=== PATIENT | female | born 1965 | race Caucasian/White ===

== ENCOUNTER 2016-03-20 14:58 | Outpatient (RCR) | payer OTHER ==
--- OUTSIDE RECORDS SUMMARY | 2015-12-25 13:18 | XMS REPORT | Continuity of Care Document ---
Author Author [facility] Organization [facility] Address Unknown Phone Unavailable Care Team Providers Care Material Requirements Worker Name Role Phone David Cheng PCP [phone] Source Comments Some departments are not documenting in the electronic medical record. If you do not see the information that you expected, contact Release of Information in the Health Information Management department at [phone] for further assistance in locating additional records.[facility] Active Allergies and Adverse Reactions Not on File Current Medications Not on file Active Problems Not on file Social History Tobacco Use Types Packs/Day Years Used Date Never Assessed Plan of Care Health Maintenance Due Date Last Done Comments Physical (Comprehensive) 1971 Exam Pertussis Vaccine 1975 Tetanus Vaccine 1981 Cervical Cancer Screening 1985 Breast Cancer Screening 2004 Colorectal Cancer 2014 Screening Influenza Vaccine 11/16/2015 Results from Last 3 Months Not on file
[~2016-03-20 14:58] MED LIST: AMLO5TAB2 PO; ASPI-999 PO; CLIN300C3 PO; CLOP75TA69 PO; IBUP-2055 PO; LISI-552 PO; MINO50CA2 PO; MULT-221 PO; OMEP20TA33 PO; SIMV20TA3 PO
== END 2016-03-24 | disposition home or self-care (01) ==
LOC: WOUNDCARE 14:58
PROVIDERS: ATTEND Surgery
DX: L97.212 Non-pressure chronic ulcer of right calf with fat layer exposed (principal); I87.331 Chronic venous hypertension (idiopathic) with ulcer and inflammation of right lower extremity; I70.232 Atherosclerosis of native arteries of right leg with ulceration of calf; I73.00 Raynaud's syndrome without gangrene
CPT/HCPCS: 11042; 15271; 29581; 87070; 87075; 87205

== ENCOUNTER 2016-04-08 15:00 | Outpatient (RCR) | payer OTHER ==
--- OUTSIDE RECORDS SUMMARY | 2016-03-25 15:16 | XMS REPORT | Continuity of Care Document ---
Author Author [facility] Organization [facility] Address Unknown Phone Unavailable Care Team Providers Care Certified Dental Assistant Name Role Phone David Cheng PCP [phone] Source Comments Some departments are not documenting in the electronic medical record. If you do not see the information that you expected, contact Release of Information in the Health Information Management department at [phone] for further assistance in locating additional records.[facility] Active Allergies and Adverse Reactions Not [...]
== END 2016-04-09 16:00 | disposition home or self-care (01) ==
LOC: WOUNDCARE 15:00
PROVIDERS: ATTEND Surgery
DX: L97.212 Non-pressure chronic ulcer of right calf with fat layer exposed (principal); I87.331 Chronic venous hypertension (idiopathic) with ulcer and inflammation of right lower extremity; I70.232 Atherosclerosis of native arteries of right leg with ulceration of calf; I73.00 Raynaud's syndrome without gangrene
CPT/HCPCS: 11042; 15271; 87070; 87075; 87077; 87186; 87205

== ENCOUNTER → 2016-04-09 | Outpatient (CLI) | payer OTHER ==
--- OUTSIDE RECORDS SUMMARY | 2016-04-09 12:20 | XMS REPORT | Continuity of Care Document ---
Author Author [facility] Organization [facility] Address Unknown Phone Unavailable Care Team Providers Care Press And Blow Machine Tender Name Role Phone David Cheng PCP [phone] Source Comments Some departments are not documenting in the electronic medical record. If you do not see the information that you expected, contact Release of Information in the Health Information Management department at [phone] for further assistance in locating additional records.[facility] Active Allergies and Adverse Reactions Not on [...]
--- NOTE | 2016-04-09 13:03 | Diagnostic Imaging Report ---
INDICATION: Nonhealing lower leg ulcer. AP and lateral views of the right lower leg are obtained. FINDINGS: There is overlying dressing with small BB over the lateral aspect of the lower leg. There is gas extending into the tissues just cephalad to the lateral malleolus. There is no evidence of fracture, malalignment or bone destruction. No periosteal reaction is seen to indicate active osteomyelitis. IMPRESSION: Lateral lower leg ulceration without evidence of underlying osseous abnormality. Dictated by: Dictated on workstation # [id number]
== END ==
LOC: RAD 12:16
PROVIDERS: ATTEND Surgery
DX: L97.212 Non-pressure chronic ulcer of right calf with fat layer exposed (principal); I87.331 Chronic venous hypertension (idiopathic) with ulcer and inflammation of right lower extremity; I73.00 Raynaud's syndrome without gangrene; L95.9 Vasculitis limited to the skin, unspecified
CPT/HCPCS: 73590

== ENCOUNTER → 2016-09-06 | Outpatient (CLI) | payer OTHER ==
--- NOTE | 2016-09-06 11:42 | Diagnostic Imaging Report ---
EXAMINATION: Right lower extremity duplex venous ultrasound. TECHNIQUE: DVT protocol. Multiple sonographic images with color Doppler and waveform interrogation were performed of the right lower extremity veins with compression and augmentation maneuvers. INDICATION: Right leg pain. FINDINGS: The right lower extremity veins from the groin to below the knee veins were examined with normal color-flow, compressibility and normal waveform demonstrated. The great saphenous vein is patent. IMPRESSION: No evidence of DVT in the right lower extremity. Dictated by: Dictated on workstation # [id number]
== END ==
LOC: RAD 10:59
PROVIDERS: ATTEND Nurse Practitioner Family
DX: R60.0 Localized edema (principal); M79.661 Pain in right lower leg

== ENCOUNTER 2016-09-09 13:27 | Emergency (ER) | payer OTHER ==
[~2016-09-09] VITALS: Ht 170.2 cm; Wt 61.2 kg
--- NOTE | 2016-09-09 13:43 | ED Lower Extremity ---
General Stated Complaint: RT FOOT AND ANKLE PAIN Source: patient Exam Limitations: no limitations History of Present Illness Time seen by provider: 13:41 Initial Comments To ER with pain in the right foot and ankle. This began on 09/06/16. She states that on 09/05/16 she tripped and fell. However she was able to get up and bear weight on her leg without pain. Upon awakening that Friday morning ( the day after), she had pain over the lateral fifth metatarsal, inability to bear weight due to pain, redness and swelling. She was seen by her primary care provider in [place] who ordered an outpatient ultrasound. That was done here and she states it was negative. They were also concerned about possible infection so she was started on Bactrim DS at that time. She denies fevers or chills and states that the swelling has improved since she applied an Jacob wrap, however, the pain persists. Onset: just prior to arrival Severity: moderate Pain/Injury Location: right foot, right ankle Method of Injury: fell Modifying Factors: Worse With Movement Allergies and Home Medications Allergies Coded Allergies: codeine (Unverified Allergy, Intermediate, HIVES AND SWELLING , 03/22/15) Home Medications Amlodipine Besylate 5 Mg Tablet, 5 MG PO DAILY, (Reported) Aspirin 81 Mg Tab.chew, 81 MG PO HS, (Reported) Clopidogrel Bisulfate 75 Mg Tablet, 75 MG PO DAILY, (Reported) Ibuprofen 200 Mg Tablet, 600 MG PO DAILY, (Reported) Lisinopril 20 Mg Tablet, 20 MG PO HS, (Reported) Omeprazole Magnesium 20 Mg Tablet.dr, 20 MG PO DAILY, (Reported) Simvastatin 20 Mg Tablet, 20 MG PO HS, (Reported) Constitutional: see HPI EENTM: see HPI Respiratory: no symptoms reported Cardiovascular: no symptoms reported Musculoskeletal: see HPI Skin: no symptoms reported Psychiatric/Neurological: No Symptoms Reported Past Qhsduhq-Vvvukh-Znrzrg Hx Patient Social History Type Used: Cigars Recent Foreign Travel: No Contact w/Someone Who Travel: No Immunizations Up To Date Date of Pneumonia Vaccine: Oct 24, 2009 Surgeries HX Surgeries: Yes (HAMMER TOE, MINA STRIPPINGS) Respiratory Hx Respiratory Disorders: No Cardiovascular Hx Cardiac Disorders: Yes Cardiac Disorders: High Cholesterol, Hypertension Neurological Hx Neurological Disorders: No Genitourinary Hx Genitourinary Disorders: No Gastrointestinal Hx Gastrointestinal Disorders: No Musculoskeletal Hx Musculoskeletal Disorders: No Endocrine Hx Endocrine Disorders: No Integumentary HX Skin/Integumentary Disorder: Yes (chronic venous stasis ulcer rt lateral ankle) Family Medical History Significant Family History: No Pertinent Family Hx Physical Exam Vital Signs Vital Sign - Last 12Hours 09/09/16 13:42 Temp 97.9 Pulse 128 Resp 16 B/P (MAP) 125/96 Pulse Ox 96 Capillary Refill : General Appearance: WD/WN, no apparent distress HEENT: PERRL/EOMI, normal ENT inspection Respiratory: no respiratory distress, no accessory muscle use Gastrointestinal: non tender, soft Hips: bilateral hip non-tender, bilateral hip normal inspection, bilateral hip normal range of motion Legs: bilateral leg non-tender, bilateral leg normal inspection, bilateral leg normal range of motion Knees: bilateral knee non-tender, bilateral knee normal inspection, bilateral knee normal range of motion Ankles: right ankle pain, right ankle soft tissue tenderness, right ankle swelling, right ankle other (she does have a venous ulcer on the lateral right leg. This is bandaged and she sees wound care at [place] for this. There is no surrounding erythema.) Feet: left foot non-tender, left foot normal inspection, left foot normal range of motion, right foot pain, right foot soft tissue tenderness Neurologic/Psychiatric: alert, normal mood/affect, oriented x 3 Skin: normal color, warm/dry Progress/Results/Core Measures Results/Orders My Orders Orders - HEMA VASQUEZ APRN Foot, Right, 3 View (09/09/16 13:40) Ankle, Right, 3 Views (09/09/16 13:40) Vital Signs/I&O Vital Sign - Last 12Hours 09/09/16 13:42 Temp 97.9 Pulse 128 Resp 16 B/P (MAP) 125/96 Pulse Ox 96 Diagnostic Imaging Diagonstic Imaging: Xray Comments NAME: FABIOLA MAYER [facility] REC#: [id number] PT STATUS: REG ER : 1965 PHYSICIAN: HEMA VASQUEZ APRN ADMIT DATE: 09/09/16/ER Draft Date of Exam:09/09/16 ANKLE, RIGHT, 3 VIEWS Three views of the right the ankle. INDICATION: Fall. FINDINGS: There is soft tissue swelling seen laterally without evidence of underlying fracture. No dislocation. The ankle mortise is normal in configuration. No radiopaque foreign body. There is background osteopenia suggested. IMPRESSION: Lateral soft tissue swelling. Suggestion of osteopenia. Dictated on workstation # [id number] Dict: 09/09/16 1359 Trans: 09/09/16 1401 [facility] [id number] Interpreted by: SINDHU SANTIAGO MD Electronically signed by: NAME: FABOILA MAYER [facility] REC#: [id number] PT STATUS: REG ER : 1965 PHYSICIAN: HEMA VASQUEZ APRN ADMIT DATE: 09/09/16/ER Draft Date of Exam:09/09/16 FOOT, RIGHT, 3 VIEW EXAMINATION: 3 views of the right foot. INDICATION: Left foot pain and swelling. Fall 3 days earlier. FINDINGS: There is a fusion of the proximal interphalangeal joint of the third and fourth digits that appears to be chronic and could potentially be congenital. There is a deformity along the head of the proximal phalanx in the second toe, and suggestion of fusion along the distal interphalangeal joint in this toe. There is also resorption of the head of the middle phalanx in the third toe with arthritic changes seen. Mild degenerative change in the MTP joint is noted. These are potentially related to prior injury or inflammatory arthritis probably of a seronegative type such as psoriasis. There is background osteopenic changes suggested. No acute fracture or dislocation. No radiopaque foreign body. IMPRESSION: Deformities, arthritic changes and joint effusion changes as described. No acute fracture is seen. Correlate with prior history of inflammatory arthritis or from prior trauma. Dictated on workstation # [id number] Dict: 09/09/16 1400 Trans: 09/09/16 1410 [facility] [id number] Interpreted by: SINDHU SANTIAGO MD Electronically signed by: Departure Impression Impression: Primary Impression: Ankle sprain Disposition: 01 HOME, SELF-CARE Condition: Stable Departure-Patient Inst. Decision time for Depature: 14:13 Referrals: [facility] (PCP) Primary Care Physician JESÚS GILL (Family) Primary Care Physician Patient Instructions: Ankle Sprain (DC) Add. Discharge Instructions: 1. Follow-up with your regular doctor this week. If the pain persists, you should discuss obtaining an MRI of the ankle 2. Return to ER for any concerns HEMA VASQUEZ APRN Sep 09, 2016 13:43
--- NOTE | 2016-09-09 14:02 | Diagnostic Imaging Report ---
Three views of the right the ankle. INDICATION: Fall. FINDINGS: There is soft tissue swelling seen laterally without evidence of underlying fracture. No dislocation. The ankle mortise is normal in configuration. No radiopaque foreign body. There is background osteopenia suggested. IMPRESSION: Lateral soft tissue swelling. Suggestion of osteopenia. Dictated by: Dictated on workstation # [id number]
--- NOTE | 2016-09-09 14:11 | Diagnostic Imaging Report ---
EXAMINATION: 3 views of the right foot. INDICATION: Left foot pain and swelling. Fall 3 days earlier. FINDINGS: There is a fusion of the proximal interphalangeal joint of the third and fourth digits that appears to be chronic and could potentially be congenital. There is a deformity along the head of the proximal phalanx in the second toe, and suggestion of fusion along the distal interphalangeal joint in this toe. There is also resorption of the head of the middle phalanx in the third toe with arthritic changes seen. Mild degenerative change in the MTP joint is noted. These are potentially related to prior injury or inflammatory arthritis probably of a seronegative type such as psoriasis. There is background osteopenic changes suggested. No acute fracture or dislocation. No radiopaque foreign body. IMPRESSION: Deformities, arthritic changes and joint effusion changes as described. No acute fracture is seen. Correlate with prior history of inflammatory arthritis or prior trauma. Dictated by: Dictated on workstation # [id number]
[2016-09-09 14:25] VITALS: BP 125/96
--- OUTSIDE RECORDS SUMMARY | 2016-09-09 23:53 | XMS REPORT | Continuity of Care Document ---
Author Author [facility] Organization [facility] Address Unknown Phone Unavailable Care Team Providers Care Healthcare Associate Name Role Phone David Cheng PCP [phone] Source Comments Some departments are not documenting in the electronic medical record. If you do not see the information that you expected, contact Release of Information in the Health Information Management department at [phone] for further assistance in locating additional records.[facility] Active Allergies and Adverse Reactions Not on File Current Medications Not on file Active Problems Not on file Social History Tobacco Use Types Packs/Day Years Used Date Never Assessed Plan of Care Health Maintenance Due Date Last Done Comments Hepatitis C Screening 1965 Physical (Comprehensive) 1971 Exam Pertussis Vaccine 1975 Tetanus Vaccine 1981 Cervical Cancer Screening 1985 Breast Cancer Screening 2004 Colorectal Cancer 2014 Screening Influenza Vaccine 11/15/2016 Results from Last 3 Months Not on file
--- OUTSIDE RECORDS SUMMARY | 2016-09-09 23:54 | XMS REPORT | Continuity of Care Document ---
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 02/13/1199 PHILLIP GEORGE MD, Ot I73.00 RAYNAUD'S SYNDROME WITHOUT GANGRENE 02/13/1199 PHILLIP GEORGE MD Ot I87.331 CHRONIC VENOUS HTN W ULCER AND INFLAMMAT 02/13/1199 PHILLIP GEORGE MD Ot L95.9 VASCULITIS LIMITED TO THE SKIN, UNSPECIF 02/13/1199 PHILLIP GEORGE MD Ot L97.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 ULCER OF RIGHT CALF 02/13/1199 PHILLIP GEORGE MD Ot T65.224A TOXIC EFFECT OF TOBACCO CIGARETTES, UNDE 02/13/1599 PHILLIP GEORGE MD Ot 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 02/13/1599 PHILLIP GEORGE MD Ot I73.00 RAYNAUD'S SYNDROME WITHOUT GANGRENE 02/13/1599 PHILLIP GEORGE MD Ot I87.331 CHRONIC VENOUS HTN W ULCER AND INFLAMMAT 02/13/1599 PHILLIP GEORGE MD, Ot L97.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 ULCER OF RIGHT CALF 02/27/2015 MADLMOISESJES[employer] L DISTRICT ADMINISTRATOR Ot I83.90 02/27/2015 MADLMOISESJESÚS L DISTRICT ADMINISTRATOR Ot M79.604 03/03/2015 MADL JESÚS L DISTRICT ADMINISTRATOR Ot I83.90 03/03/2015 MADMOISES PerezJESÚS L DISTRICT ADMINISTRATOR Ot M79.604 03/09/2015 MADL JESÚS L DISTRICT ADMINISTRATOR Ot I83.90 03/09/2015 JAIROJESÚS DISTRICT ADMINISTRATOR Ot M79.604 03/16/2015 JAIRO JESÚS Chris DISTRICT ADMINISTRATOR Ot I83.90 03/16/2015 JAIRO JESÚS Chris DISTRICT ADMINISTRATOR Ot M79.604 03/16/2015 PHILLIP GEORGE MD Ot I70.232 03/16/2015 PHILLIP GEORGE MD Ot I73.00 03/16/2015 PHILLIP GEORGE MD Ot I87.331 03/16/2015 PHILLIP GEORGE MD Ot L95.9 03/16/2015 PHILLIP GEORGE MD Ot L97.212 03/16/2015 PHILLIP GEORGE MD Ot T65.224A 03/22/2015 NADEEM HAMLIN MD Ot E78.5 HYPERLIPIDEMIA, UNSPECIFIED 03/22/2015 NADEEM HAMLIN MD Ot F17.200 NICOTINE DEPENDENCE, UNSPECIFIED, UNCOMP 03/22/2015 NADEEM HAMLIN MD Ot I10 ESSENTIAL (PRIMARY) HYPERTENSION 03/22/2015 NADEEM HAMLIN MD Ot I73.00 RAYNAUD'S SYNDROME WITHOUT GANGRENE 03/22/2015 NADEEM HAMLIN MD Ot I73.9 PERIPHERAL VASCULAR DISEASE, UNSPECIFIED 03/22/2015 NADEEM HAMLIN MD Ot L97.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 03/22/2015 NADEEM HAMLIN MD Ot Z79.899 OTHER RESIDENTIAL (CURRENT) DRUG THERAPY 05/15/2015 PHILLIP GEORGE MD Ot I70.232 05/15/2015 PHILLIP GEORGE MD Ot I73.00 05/15/2015 PHILLIP GEORGE MD Ot I87.331 05/15/2015 PHILLIP GEORGE MD Ot L95.9 05/15/2015 PHILLIP GEORGE MD Ot L97.212 05/15/2015 PHILLIP GEORGE MD Ot T65.224A 05/15/2015 PHILLIP GEORGE MD Ot I73.00 05/15/2015 PHILLIP GEORGE MD Ot I87.331 05/15/2015 PHILLIP GEORGE MD Ot L95.9 05/15/2015 PHILLIP GEORGE MD Ot L97.212 05/15/2015 JES[employer]S [employer] DISTRICT ADMINISTRATOR Ot I83.90 05/15/2015 JES[employer] DISTRICT ADMINISTRATOR Ot M79.604 05/15/2015 ARIEL HINTON, PHILLIP Pham Ot I70.232 05/15/2015 ARIEL HINTON, PHILLIP Pham Ot I73.00 05/15/2015 ARIEL HINTON, PHILLIP Pham Ot I87.331 05/15/2015 ARIEL HINTON, PHILLIP Pham Ot L95.9 05/15/2015 ARIEL HINTON, PHILLIP Pham Ot L97.212 05/15/2015 ARIEL HINTON, PHILLIP Pham Ot T65.224A 05/15/2015 ARIEL HINTON, PHILLIP Pham Ot I73.9 05/15/2015 ARIEL HINTON, PHILLIP Pham Ot L97.219 05/15/2015 ARIEL HINTON, PHILLIP Pham Ot I73.00 05/15/2015 ARIEL HINTON, PHILLIP Pham Ot I87.331 05/15/2015 ARIEL HINTON, PHILLIP Pham Ot L95.9 05/15/2015 ARIEL HINTON, PHILLIP Pham Ot L97.212 05/15/2015 ARIEL HINTON, PHILLIP Pham Ot I70.232 05/15/2015 ARIEL HINTON, PHILLIP Pham Ot I73.00 05/15/2015 ARIEL HINTON, PHILLIP Pham Ot I87.331 05/15/2015 ARIEL HINTON, PHILLIP Pham Ot L95.9 05/15/2015 ARIEL HINTON, PHILLIP Pham Ot L97.212 05/15/2015 ARIEL HINTON, PHILLIP Pham Ot T65.224A 05/15/2015 ARIEL HINTON, PHILLIP Pham Ot I70.232 05/15/2015 ARIEL HINTON, PHILLIP Pham Ot I73.00 05/15/2015 ARIEL HINTON, PHILLIP Pham Ot I87.331 05/15/2015 ARIEL HINTON, PHILLIP Pham Ot L95.9 05/15/2015 ARIEL HINTON, PHILLIP Pham Ot L97.212 05/15/2015 ARIEL HINTON, PHILLIP Pham Ot T65.224A 05/19/2015 ARIEL HINTON, PHILLIP Pham Ot I73.9 05/19/2015 ARIEL HINTON, PHILLIP Pham Ot L97.219 05/19/2015 ARIEL HINTON, PHILLIP Pham Ot I73.00 05/19/2015 ARIEL HINTON, PHILLIP Pham Ot I87.331 05/19/2015 ARIEL HINTON, PHILLIP Pham Ot L95.9 05/19/2015 PHILLIP GEORGE MD Ot L97.212 06/01/2015 PHILLIP GEORGE MD Ot 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 06/01/2015 PHILLIP GEORGE MD Ot I73.00 RAYNAUD'S SYNDROME WITHOUT GANGRENE 06/01/2015 PHILLIP GEORGE MD Ot I87.331 CHRONIC VENOUS HTN W ULCER AND INFLAMMAT 06/01/2015 PHILLIP GEORGE MD Ot L95.9 VASCULITIS LIMITED TO THE SKIN, UNSPECIF 06/01/2015 PHILLIP GEORGE MD Ot L97.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 ULCER OF RIGHT CALF 06/01/2015 PHILLIP GEORGE MD Ot T65.224A TOXIC EFFECT OF TOBACCO CIGARETTES, UNDE 06/02/2015 PHILLIP GEORGE MD Ot I70.232 06/02/2015 PHILLIP GEORGE MD Ot I73.00 06/02/2015 PHILLIP GEORGE MD Ot I87.331 06/02/2015 PHILLIP GEORGE MD Ot L95.9 06/02/2015 PHILLIP GEORGE MD Ot L97.212 06/02/2015 PHILLIP GEORGE MD Ot T65.224A 06/06/2015 PHILLIP GEORGE MD Ot I70.232 06/06/2015 PHILLIP GEORGE MD Ot I73.00 06/06/2015 PHILLIP GEORGE MD Ot I87.331 06/06/2015 PHILLIP GEORGE MD Ot L95.9 06/06/2015 PHILLIP GEORGE MD Ot L97.212 06/06/2015 PHILLIP GEORGE MD Ot T65.224A 07/25/2015 PHILLIP GEORGE MD Ot 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 07/25/2015 PHILLIP GEORGE MD Ot I73.00 RAYNAUD'S SYNDROME WITHOUT GANGRENE 07/25/2015 PHILLIP GEORGE MD Ot I87.331 CHRONIC VENOUS HTN W ULCER AND INFLAMMAT 07/25/2015 PHILLIP GEORGE MD Ot L95.9 VASCULITIS LIMITED TO THE SKIN, UNSPECIF 07/25/2015 PHILLIP GEORGE MD Ot L97.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 ULCER OF RIGHT CALF 07/25/2015 PHILLIP GEORGE MD Ot 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 07/25/2015 PHILLIP GEORGE MD Ot I73.00 RAYNAUD'S SYNDROME WITHOUT GANGRENE 07/25/2015 PHILLIP GEORGE MD Ot I87.331 CHRONIC VENOUS HTN W ULCER AND INFLAMMAT 07/25/2015 PHILLIP GEORGE MD Ot L95.9 VASCULITIS LIMITED TO THE SKIN, UNSPECIF 07/25/2015 PHILLIP GEORGE MD Ot L97.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 ULCER OF RIGHT CALF 08/14/2015 DIPAK RODGERS Ot I87.8 OTHER SPECIFIED DISORDERS OF VEINS 08/14/2015 DIPAK RODGERS Ot L03.115 CELLULITIS OF RIGHT LOWER LIMB 08/14/2015 DIPAK RODGERS Ot L97.909 NON-PRS CHRONIC ULC UNSP PRT OF UNSP LOW 08/14/2015 JESÚS GILL DISTRICT ADMINISTRATOR Ot I83.90 ASYMPTOMATIC VARICOSE VEINS OF UNSPECIFI 08/14/2015 JESÚ[employer] G[employer] DISTRICT ADMINISTRATOR Ot M79.604 PAIN IN RIGHT LEG 08/14/2015 PHILLIP GEORGE MD Ot I73.9 PERIPHERAL VASCULAR DISEASE, UNSPECIFIED 08/14/2015 PHILLIP GEORGE MD Ot L97.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 08/14/2015 PHILLIP GEORGE MD, Ot I73.00 RAYNAUD'S SYNDROME WITHOUT GANGRENE 08/14/2015 PHILLIP GEORGE MD Ot I87.331 CHRONIC VENOUS HTN W ULCER AND INFLAMMAT 08/14/2015 PHILLIP GEORGE MD Ot L95.9 VASCULITIS LIMITED TO THE SKIN, UNSPECIF 08/14/2015 PHILLIP GEORGE MD Ot L97.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 ULCER OF RIGHT CALF 08/14/2015 PHILLIP GEORGE MD Ot 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 08/14/2015 PHILLIP GEORGE MD Ot I73.00 RAYNAUD'S SYNDROME WITHOUT GANGRENE 08/14/2015 PHILLIP GEORGE MD Ot I87.331 CHRONIC VENOUS HTN W ULCER AND INFLAMMAT 08/14/2015 PHILLIP GEORGE MD Ot L95.9 VASCULITIS LIMITED TO THE SKIN, UNSPECIF 08/14/2015 PHLILIP GEORGE MD Ot L97.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 ULCER OF RIGHT CALF 08/14/2015 PHILLIP GEORGE MD Ot T65.224A TOXIC EFFECT OF TOBACCO CIGARETTES, UNDE 08/14/2015 PHILLIP GEORGE MD Ot 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 08/14/2015 PHILLIP GEORGE MD, Ot I73.00 RAYNAUD'S SYNDROME WITHOUT GANGRENE 08/14/2015 PHILLIP GEORGE MD Ot I87.331 CHRONIC VENOUS HTN W ULCER AND INFLAMMAT 08/14/2015 PHILLIP GEORGE MD, Ot L95.9 VASCULITIS LIMITED TO THE SKIN, UNSPECIF 08/14/2015 PHILLIP GEORGE MD Ot L97.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 ULCER OF RIGHT CALF 08/14/2015 PHILLIP GEORGE MD, Ot 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 08/14/2015 PHILLIP GEORGE MD, Ot I73.00 RAYNAUD'S SYNDROME WITHOUT GANGRENE 08/14/2015 PHILLIP GEORGE MD, Ot I87.331 CHRONIC VENOUS HTN W ULCER AND INFLAMMAT 08/14/2015 PHILLIP GEORGE MD, Ot L95.9 VASCULITIS LIMITED TO THE SKIN, UNSPECIF 08/14/2015 PHILLIP GEORGE MD Ot L97.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 ULCER OF RIGHT CALF 08/16/2015 DIPAK RODGERS Ot I87.8 OTHER SPECIFIED DISORDERS OF VEINS 08/16/2015 DIPAK RODGERS Ot L03.115 CELLULITIS OF RIGHT LOWER LIMB 08/16/2015 DIPAK RODGERS Ot L97.909 NON-PRS CHRONIC ULC UNSP PRT OF UNSP LOW 08/22/2015 DIPAK RODGERS Ot I87.8 OTHER SPECIFIED DISORDERS OF VEINS 08/22/2015 DIPAK RODGERS Ot L03.115 CELLULITIS OF RIGHT LOWER LIMB 08/22/2015 DIPAK RODGERS Ot L97.909 NON-PRS CHRONIC ULC UNSP PRT OF UNSP LOW 09/03/2015 PHILLIP GEORGE MD Ot 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 09/03/2015 PHILLIP GEORGE MD Ot I73.00 RAYNAUD'S SYNDROME WITHOUT GANGRENE 09/03/2015 PHILLIP GEORGE MD Ot I87.331 CHRONIC VENOUS HTN W ULCER AND INFLAMMAT 09/03/2015 PHILLIP GEORGE MD Ot L95.9 VASCULITIS LIMITED TO THE SKIN, UNSPECIF 09/03/2015 PHILLIP GEORGE MD, Ot L97.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 ULCER OF RIGHT CALF 09/03/2015 PHILLIP GEORGE MD, Ot T65.224A TOXIC EFFECT OF TOBACCO CIGARETTES, UNDE 09/04/2015 PHILLIP GEORGE MD Ot 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 09/04/2015 PHILLIP GEORGE MD Ot I73.00 RAYNAUD'S SYNDROME WITHOUT GANGRENE 09/04/2015 PHILLIP GEORGE MD Ot I87.331 CHRONIC VENOUS HTN W ULCER AND INFLAMMAT 09/04/2015 PHILLIP GEORGE MD, Ot L95.9 VASCULITIS LIMITED TO THE SKIN, UNSPECIF 09/04/2015 PHILLIP GEORGE MD, Ot L97.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 ULCER OF RIGHT CALF 09/04/2015 PHILLIP GEORGE MD, Ot T65.224A TOXIC EFFECT OF TOBACCO CIGARETTES, UNDE 09/05/2015 PHILLIP GEORGE MD Ot 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 09/05/2015 PHILLIP GEORGE MD Ot I73.00 RAYNAUD'S SYNDROME WITHOUT GANGRENE 09/05/2015 PHILLIP GEORGE MD Ot I87.331 CHRONIC VENOUS HTN W ULCER AND INFLAMMAT 09/05/2015 PHILLIP GEORGE MD, Ot L95.9 VASCULITIS LIMITED TO THE SKIN, UNSPECIF 09/05/2015 PHILLIP GEORGE MD Ot L97.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 ULCER OF RIGHT CALF 09/05/2015 PHILLIP GEORGE MD, Ot T65.224A TOXIC EFFECT OF TOBACCO CIGARETTES, UNDE 09/15/2015 PHILLIP GEORGE MD Ot 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 09/15/2015 PHILLIP GEORGE MD Ot I73.00 RAYNAUD'S SYNDROME WITHOUT GANGRENE 09/15/2015 PHILLIP GEORGE MD Ot I87.331 CHRONIC VENOUS HTN W ULCER AND INFLAMMAT 09/15/2015 PHILLIP GEORGE MD Ot L95.9 VASCULITIS LIMITED TO THE SKIN, UNSPECIF 09/15/2015 PHILLIP GEORGE MD Ot L97.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 ULCER OF RIGHT CALF 09/15/2015 PHILLIP GEORGE MD Ot T65.224A TOXIC EFFECT OF TOBACCO CIGARETTES, UNDE 09/25/2015 PHILLIP GEORGE MD Ot 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 09/25/2015 PHILLIP GEORGE MD Ot I73.00 RAYNAUD'S SYNDROME WITHOUT GANGRENE 09/25/2015 PHILLIP GEORGE MD Ot I87.331 CHRONIC VENOUS HTN W ULCER AND INFLAMMAT 09/25/2015 PHILLIP GEORGE MD, Ot L95.9 VASCULITIS LIMITED TO THE SKIN, UNSPECIF 09/25/2015 PHILLIP GEORGE MD Ot L97.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 ULCER OF RIGHT CALF 09/25/2015 PHILLIP GEORGE MD, Ot T65.224A TOXIC EFFECT OF TOBACCO CIGARETTES, UNDE 11/03/2015 PHILLIP GEORGE MD Ot 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 11/03/2015 PHILLIP GEORGE MD, Ot I73.00 RAYNAUD'S SYNDROME WITHOUT GANGRENE 11/03/2015 PHILLIP GEORGE MD Ot I87.331 CHRONIC VENOUS HTN W ULCER AND INFLAMMAT 11/03/2015 PHILLIP GEORGE MD, Ot L95.9 VASCULITIS LIMITED TO THE SKIN, UNSPECIF 11/03/2015 PHILLIP GEORGE MD Ot L97.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 ULCER OF RIGHT CALF 11/03/2015 PHILLIP GEORGE MD, Ot T65.224A TOXIC EFFECT OF TOBACCO CIGARETTES, UNDE 11/28/2015 PHILLIP GEORGE MD Ot 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 11/28/2015 PHILLIP GEORGE MD Ot I73.00 RAYNAUD'S SYNDROME WITHOUT GANGRENE 11/28/2015 PHILLIP GEORGE MD Ot I87.331 CHRONIC VENOUS HTN W ULCER AND INFLAMMAT 11/28/2015 PHILLIP GEORGE MD Ot L95.9 VASCULITIS LIMITED TO THE SKIN, UNSPECIF 11/28/2015 PHILLIP GEORGE MD Ot L97.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 ULCER OF RIGHT CALF 11/28/2015 PHILLIP GEORGE MD Ot 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 11/28/2015 PHILLIP GEORGE MD Ot I73.00 RAYNAUD'S SYNDROME WITHOUT GANGRENE 11/28/2015 PHILLIP GEORGE MD Ot I87.331 CHRONIC VENOUS HTN W ULCER AND INFLAMMAT 11/28/2015 PHILLIP GEORGE MD, Ot L95.9 VASCULITIS LIMITED TO THE SKIN, UNSPECIF 11/28/2015 PHILLIP GEORGE MD Ot L97.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 ULCER OF RIGHT CALF 11/29/2015 PHILLIP GEORGE MD Ot 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 11/29/2015 PHILLIP GEROGE MD, Ot I73.00 RAYNAUD'S SYNDROME WITHOUT GANGRENE 11/29/2015 PHILLIP GEORGE MD, Ot I87.331 CHRONIC VENOUS HTN W ULCER AND INFLAMMAT 11/29/2015 PHILLIP GEORGE MD, Ot L95.9 VASCULITIS LIMITED TO THE SKIN, UNSPECIF 11/29/2015 PHILLIP GEORGE MD, Ot L97.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 ULCER OF RIGHT CALF 12/27/2015 PHILLIP GEORGE MD, Ot 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 12/27/2015 PHILLIP GEORGE MD, Ot I73.00 RAYNAUD'S SYNDROME WITHOUT GANGRENE 12/27/2015 PHILLIP GEORGE MD Ot I87.331 CHRONIC VENOUS HTN W ULCER AND INFLAMMAT 12/27/2015 PHILLIP GEORGE MD, Ot L97.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 ULCER OF RIGHT CALF 02/05/2016 J[employer] ADMINISTRATOR Ot I83.90 ASYMPTOMATIC VARICOSE VEINS OF UNSPECIFI 02/05/2016 JES[employer] DISTRICT ADMINISTRATOR Ot M79.604 PAIN IN RIGHT LEG 02/05/2016 PHILLIP GEORGE MD Ot I73.9 PERIPHERAL VASCULAR DISEASE, UNSPECIFIED 02/05/2016 PHILLIP GEORGE MD, Ot L97.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 02/05/2016 PHILLIP GEORGE MD, Ot I73.00 RAYNAUD'S SYNDROME WITHOUT GANGRENE 02/05/2016 PHILLIP GEORGE MD Ot I87.331 CHRONIC VENOUS HTN W ULCER AND INFLAMMAT 02/05/2016 PHILLIP GEORGE MD, Ot L95.9 VASCULITIS LIMITED TO THE SKIN, UNSPECIF 02/05/2016 PHILLIP GEORGE MD, Ot L97.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 ULCER OF RIGHT CALF 02/05/2016 ARIEL MD, PHILLIP G Ot 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 02/05/2016 PHILLIP GEORGE MD Ot I73.00 RAYNAUD'S SYNDROME WITHOUT GANGRENE 02/05/2016 PHILLIP GEORGE MD Ot I87.331 CHRONIC VENOUS HTN W ULCER AND INFLAMMAT 02/05/2016 PHILLIP GEORGE MD Ot L95.9 VASCULITIS LIMITED TO THE SKIN, UNSPECIF 02/05/2016 PHILLIP GEORGE MD, Ot L97.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 ULCER OF RIGHT CALF 02/05/2016 PHILLIP GEORGE MD Ot 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 02/05/2016 PHILLIP GEORGE MD, Ot I73.00 RAYNAUD'S SYNDROME WITHOUT GANGRENE 02/05/2016 PHILLIP GEORGE MD Ot I87.331 CHRONIC VENOUS HTN W ULCER AND INFLAMMAT 02/05/2016 PHILLIP GEORGE MD, Ot L95.9 VASCULITIS LIMITED TO THE SKIN, UNSPECIF 02/05/2016 PHILLIP GEORGE MD Ot L97.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 ULCER OF RIGHT CALF 02/05/2016 PHILLIP GEORGE MD Ot 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 02/05/2016 PHILLIP GEORGE MD Ot I73.00 RAYNAUD'S SYNDROME WITHOUT GANGRENE 02/05/2016 PHILLIP GEORGE MD Ot I87.331 CHRONIC VENOUS HTN W ULCER AND INFLAMMAT 02/05/2016 PHILLIP GEORGE MD Ot L97.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 ULCER OF RIGHT CALF 02/05/2016 PHILLIP GEORGE MD Ot 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 02/05/2016 PHILLIP GEORGE MD Ot I73.00 RAYNAUD'S SYNDROME WITHOUT GANGRENE 02/05/2016 PHILLIP GEORGE MD Ot I87.331 CHRONIC VENOUS HTN W ULCER AND INFLAMMAT 02/05/2016 PHILLIP GEORGE MD Ot L97.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 ULCER OF RIGHT CALF 02/05/2016 PHILLIP GEORGE MD Ot 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 02/05/2016 PHILLIP GEORGE MD Ot I73.00 RAYNAUD'S SYNDROME WITHOUT GANGRENE 02/05/2016 ARIEL MD, PHILLIP G Ot I87.331 CHRONIC VENOUS HTN W ULCER AND INFLAMMAT 02/05/2016 PHILLIP GEORGE MD Ot L97.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 ULCER OF RIGHT CALF 02/05/2016 PHILLIP GEORGE MD Ot 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 02/05/2016 PHILLIP GEORGE MD Ot I73.00 RAYNAUD'S SYNDROME WITHOUT GANGRENE 02/05/2016 PHILLIP GEORGE MD, Ot I87.331 CHRONIC VENOUS HTN W ULCER AND INFLAMMAT 02/05/2016 PHILLIP GEORGE MD, Ot L97.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 ULCER OF RIGHT CALF 02/05/2016 NADEEM HAMLIN MD Ot E78.5 HYPERLIPIDEMIA, UNSPECIFIED 02/05/2016 NADEEM HAMLIN MD Ot I10 ESSENTIAL (PRIMARY) HYPERTENSION 02/05/2016 NADEEM HAMLIN MD Ot 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 02/05/2016 NADEEM HAMLIN MD Ot L97.319 NON-PRESSURE CHRONIC ULCER OF RIGHT ANKL 02/05/2016 NADEEM HAMLIN MD Ot Z79.899 OTHER REGISTERED OCCUPATIONAL THERAPIST (CURRENT) DRUG THERAPY 02/05/2016 NADEEM HAMLIN MD Ot Z87.891 PERSONAL HISTORY OF NICOTINE DEPENDENCE 02/20/2016 PHILLIP GEORGE MD Ot 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 02/20/2016 PHILLIP GEORGE MD Ot I73.00 RAYNAUD'S SYNDROME WITHOUT GANGRENE 02/20/2016 PHILLIP GEORGE MD Ot I87.331 CHRONIC VENOUS HTN W ULCER AND INFLAMMAT 02/20/2016 PHILLIP GEORGE MD Ot L97.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 ULCER OF RIGHT CALF 03/24/2016 PHILLIP GEORGE MD Ot 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 03/24/2016 PHILLIP GEORGE MD Ot I73.00 RAYNAUD'S SYNDROME WITHOUT GANGRENE 03/24/2016 PHILLIP GEORGE MD Ot I87.331 CHRONIC VENOUS HTN W ULCER AND INFLAMMAT 03/24/2016 PHILLIP GEORGE MD Ot L97.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 ULCER OF RIGHT CALF 03/26/2016 PHILLIP GEORGE MD Ot 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 03/26/2016 PHILLIP GEORGE MD Ot I73.00 RAYNAUD'S SYNDROME WITHOUT GANGRENE 03/26/2016 PHILLIP GEORGE MD Ot I87.331 CHRONIC VENOUS HTN W ULCER AND INFLAMMAT 03/26/2016 PHILLIP GEORGE MD Ot L97.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 ULCER OF RIGHT CALF 04/09/2016 [employer] ADMINISTRATOR Ot I83.90 ASYMPTOMATIC VARICOSE VEINS OF UNSPECIFI 04/09/2016 JAIRO JESÚS L DISTRICT ADMINISTRATOR Ot M79.604 PAIN IN RIGHT LEG 04/09/2016 PHILLIP GEORGE MD Ot I73.9 PERIPHERAL VASCULAR DISEASE, UNSPECIFIED 04/09/2016 PHILLIP GEORGE MD, Ot L97.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 04/09/2016 PHILLIP GEORGE MD, Ot I73.00 RAYNAUD'S SYNDROME WITHOUT GANGRENE 04/09/2016 PHILLIP GEORGE MD, Ot I87.331 CHRONIC VENOUS HTN W ULCER AND INFLAMMAT 04/09/2016 PHILLIP GEORGE MD Ot L95.9 VASCULITIS LIMITED TO THE SKIN, UNSPECIF 04/09/2016 PHILLIP GEORGE MD Ot L97.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 ULCER OF RIGHT CALF 04/09/2016 PHILLIP GEORGE MD Ot 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 04/09/2016 PHILLIP GEORGE MD Ot I73.00 RAYNAUD'S SYNDROME WITHOUT GANGRENE 04/09/2016 PHILLIP GEORGE MD Ot I87.331 CHRONIC VENOUS HTN W ULCER AND INFLAMMAT 04/09/2016 PHILLIP GEORGE MD Ot L95.9 VASCULITIS LIMITED TO THE SKIN, UNSPECIF 04/09/2016 PHILLIP GEORGE MD Ot L97.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 ULCER OF RIGHT CALF 04/09/2016 PHILLIP GEORGE MD Ot 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 04/09/2016 PHILLIP GEORGE MD Ot I73.00 RAYNAUD'S SYNDROME WITHOUT GANGRENE 04/09/2016 PHILLIP GEORGE MD Ot I87.331 CHRONIC VENOUS HTN W ULCER AND INFLAMMAT 04/09/2016 PHILLIP GEORGE MD Ot L95.9 VASCULITIS LIMITED TO THE SKIN, UNSPECIF 04/09/2016 PHILLIP GEORGE MD Ot L97.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 ULCER OF RIGHT CALF 04/09/2016 PHILLIP GEORGE MD, Ot 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 04/09/2016 PHILLIP GEORGE MD, Ot I73.00 RAYNAUD'S SYNDROME WITHOUT GANGRENE 04/09/2016 PHILLIP GEORGE MD Ot I87.331 CHRONIC VENOUS HTN W ULCER AND INFLAMMAT 04/09/2016 PHILLIP GEORGE MD, Ot L97.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 ULCER OF RIGHT CALF 04/09/2016 PHILLIP GEORGE MD, Ot 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 04/09/2016 PHILLIP GEORGE MD, Ot I73.00 RAYNAUD'S SYNDROME WITHOUT GANGRENE 04/09/2016 PHILLIP GEORGE MD, Ot I87.331 CHRONIC VENOUS HTN W ULCER AND INFLAMMAT 04/09/2016 PHILLIP GEORGE MD, Ot L97.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 ULCER OF RIGHT CALF 04/09/2016 PHILLIP GEORGE MD Ot 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 04/09/2016 PHILLIP GEORGE MD Ot I73.00 RAYNAUD'S SYNDROME WITHOUT GANGRENE 04/09/2016 PHILLIP GEORGE MD Ot I87.331 CHRONIC VENOUS HTN W ULCER AND INFLAMMAT 04/09/2016 PHILLIP GEORGE MD Ot L97.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 ULCER OF RIGHT CALF 04/19/2016 PHILLIP GEORGE MD Ot I73.00 RAYNAUD'S SYNDROME WITHOUT GANGRENE 04/19/2016 PHILLIP GEORGE MD Ot I87.331 CHRONIC VENOUS HTN W ULCER AND INFLAMMAT 04/19/2016 PHILLIP GEORGE MD Ot L95.9 VASCULITIS LIMITED TO THE SKIN, UNSPECIF 04/19/2016 PHILLIP GEORGE MD, Ot L97.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 ULCER OF RIGHT CALF 09/06/2016 JESÚS IGLL Ot I83.90 ASYMPTOMATIC VARICOSE VEINS OF UNSPECIFI 09/06/2016 JESÚS GILLP Ot M79.604 PAIN IN RIGHT LEG 09/06/2016 PHILLIP GEORGE MD Ot I73.9 PERIPHERAL VASCULAR DISEASE, UNSPECIFIED 09/06/2016 PHILLIP GEORGE MD Ot L97.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 09/06/2016 PHILLIP GEORGE MD, Ot I73.00 RAYNAUD'S SYNDROME WITHOUT GANGRENE 09/06/2016 PHILLIP EGORGE MD Ot I87.331 CHRONIC VENOUS HTN W ULCER AND INFLAMMAT 09/06/2016 PHILLIP GEORGE MD Ot L95.9 VASCULITIS LIMITED TO THE SKIN, UNSPECIF 09/06/2016 PHILLIP GEORGE MD, Ot L97.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 ULCER OF RIGHT CALF 09/06/2016 PHILLIP GEORGE MD, Ot 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 09/06/2016 PHILLIP GEORGE MD, Ot I73.00 RAYNAUD'S SYNDROME WITHOUT GANGRENE 09/06/2016 PHILLIP GEORGE MD, Ot I87.331 CHRONIC VENOUS HTN W ULCER AND INFLAMMAT 09/06/2016 PHILLIP GEORGE MD, Ot L95.9 VASCULITIS LIMITED TO THE SKIN, UNSPECIF 09/06/2016 PHILLIP GEORGE MD, Ot L97.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 ULCER OF RIGHT CALF 09/06/2016 PHILLIP GEORGE MD, Ot 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 09/06/2016 PHILLIP GEORGE MD, Ot I73.00 RAYNAUD'S SYNDROME WITHOUT GANGRENE 09/06/2016 PHILLIP GEORGE MD Ot I87.331 CHRONIC VENOUS HTN W ULCER AND INFLAMMAT 09/06/2016 PHILLIP GEORGE MD Ot L95.9 VASCULITIS LIMITED TO THE SKIN, UNSPECIF 09/06/2016 PHILLIP GEORGE MD, Ot L97.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 ULCER OF RIGHT CALF 09/06/2016 PHILLIP GEORGE MD, Ot 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 09/06/2016 PHILLIP GEORGE MD, Ot I73.00 RAYNAUD'S SYNDROME WITHOUT GANGRENE 09/06/2016 PHILLIP GEORGE MD Ot I87.331 CHRONIC VENOUS HTN W ULCER AND INFLAMMAT 09/06/2016 PHILLIP GEORGE MD Ot L97.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 ULCER OF RIGHT CALF 09/06/2016 PHILLIP GEORGE MD Ot I73.00 RAYNAUD'S SYNDROME WITHOUT GANGRENE 09/06/2016 PHILLIP GEORGE MD, Ot I87.331 CHRONIC VENOUS HTN W ULCER AND INFLAMMAT 09/06/2016 PHILLIP GEORGE MD, Ot L95.9 VASCULITIS LIMITED TO THE SKIN, UNSPECIF 09/06/2016 PHILLIP GEORGE MD, Ot L97.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 ULCER OF RIGHT CALF Procedures Results Test Result Range Bacteria identification in isolate by anaerobe culture - 12/25/15 13:53 Bacteria identification in isolate by anaerobe culture NG NR Gram stain microscopy - 12/25/15 13:53 GRAM STAIN RESULT NO WBC'S OR BACTERIA OBSERVED NRG Bacteria identification in wound by culture - 12/25/15 13:53 Bacteria identification in wound by culture NG NRG Complete blood count (CBC) with automated white blood cell (WBC) differential - 12/25/15 14:40 Blood leukocytes automated count (number/volume) 7.7 10*3/ uL 4.3-11.0 Blood erythrocytes automated count (number/volume) 4.38 10*6 /uL 4.35-5.85 Venous blood hemoglobin measurement (mass/volume) 13.5 g/dL 11.5-16.0 Blood hematocrit (volume fraction) 41 % 35-52 Automated erythrocyte mean corpuscular volume 93 [foz_us] 80-99 Automated erythrocyte mean corpuscular hemoglobin (mass per erythrocyte) 31 pg 25-34 Automated erythrocyte mean corpuscular hemoglobin concentration measurement ( mass/volume) 33 g/dL 32-36 Automated erythrocyte distribution width ratio 14.9 % 10.0-14.5 Automated blood platelet count (count/volume) 178 10*3/uL 130-400 Automated blood platelet mean volume measurement 9.6 [foz_us ] 7.4-10.4 Automated blood neutrophils/100 leukocytes 68 % 42-75 Automated blood lymphocytes/100 leukocytes 19 % 12-44 Blood monocytes/100 leukocytes 11 % 0-12 Automated blood eosinophils/100 leukocytes 1 % 0-10 Automated blood basophils/100 leukocytes 1 % 0-10 Blood neutrophils automated count (number/volume) 5.2 10*3 1.8-7.8 Blood lymphocytes automated count (number/volume) 1.5 10*3 1.0-4.0 Blood monocytes automated count (number/volume) 0.9 10*3 0.0-1.0 Automated eosinophil count 0.1 10*3/uL 0.0-0.3 Automated blood basophil count (count/volume) 0.0 10*3/uL 0.0-0.1 Comprehensive metabolic panel - 12/25/15 14:40 Serum or plasma sodium measurement (moles/volume) 138 mmol/ L 135-145 Serum or plasma potassium measurement (moles/volume) 3.8 mmol/L 3.6-5.0 Serum or plasma chloride measurement (moles/volume) 104 mmol /L 98-107 Carbon dioxide 21 mmol/L 21-32 Serum or plasma anion gap determination (moles/volume) 13 mmol/L 5-14 Serum or plasma urea nitrogen measurement (mass/volume) 9 mg /dL 7-18 Serum or plasma creatinine measurement (mass/volume) 0.73 mg /dL 0.60-1.30 Serum or plasma urea nitrogen/creatinine mass ratio 12 NRG Serum or plasma creatinine measurement with calculation of estimated glomerular filtration rate > NRG Serum or plasma glucose measurement (mass/volume) 92 mg/dL 70-105 Serum or plasma calcium measurement (mass/volume) 9.7 mg/dL 8.5-10.1 Serum or plasma total bilirubin measurement (mass/volume) 0.2 mg/dL 0.1-1.0 Serum or plasma alkaline phosphatase measurement (enzymatic activity/volume) 93 U/L 40-136 Serum or plasma aspartate aminotransferase measurement (enzymatic activity/ volume) 28 U/L 5-34 Serum or plasma alanine aminotransferase measurement (enzymatic activity/volume ) 25 U/L 0-55 Serum or plasma protein measurement (mass/volume) 7.4 g/dL 6.4-8.2 Serum or plasma albumin measurement (mass/volume) 4.4 g/dL 3.2-4.5 Complete urinalysis with reflex to culture - 02/05/16 07:27 Urine color determination YELLOW NRG Urine clarity determination CLEAR NRG Urine pH measurement by test strip 6.5 5 -9 Specific gravity of urine by test strip 1.015 1.016-1.022 Urine protein assay by test strip, semi-quantitative NEGATIVE NEGATIVE Urine glucose detection by automated test strip NEGATIVE NEGATIVE Erythrocytes detection in urine sediment by light microscopy 2+ NEGATIVE Urine ketones detection by automated test strip NEGATIVE NEGATIVE Urine nitrite detection by test strip NEGATIVE NEGATIVE Urine total bilirubin detection by test strip NEGATIVE NEGATIVE Urine urobilinogen measurement by automated test strip (mass/volume) NORMAL NORMAL Urine leukocyte esterase detection by dipstick NEGATIVE NEGATIVE Automated urine sediment erythrocyte count by microscopy (number/high power field) [HPF] NRG Automated urine sediment leukocyte count by microscopy (number/high power field ) NONE NRG Bacteria detection in urine sediment by light microscopy TRACE NRG Squamous epithelial cells detection in urine sediment by light microscopy 5-10 NRG Crystals detection in urine sediment by light microscopy NONE NRG Casts detection in urine sediment by light microscopy NONE NRG Mucus detection in urine sediment by light microscopy NEGATIVE NRG Complete urinalysis with reflex to culture YES NRG Yeast detection in urine sediment by light microscopy FEW NRG Bacterial urine culture - 02/05/16 07:27 Bacterial urine culture [id number] NRG COLONY COUNT <10,000 NRG FREE TEXT ENTRY 2 MIXED GRAM POSITIVE PERLA <10,000/ML NRG Automated blood complete blood count (hemogram) panel - 02/05/16 07:36 Blood leukocytes automated count (number/volume) 5.1 10*3/ uL 4.3-11.0 Blood erythrocytes automated count (number/volume) 4.47 10*6 /uL 4.35-5.85 Venous blood hemoglobin measurement (mass/volume) 13.3 g/dL 11.5-16.0 Blood hematocrit (volume fraction) 41 % 35-52 Automated erythrocyte mean corpuscular volume 92 [foz_us] 80-99 Automated erythrocyte mean corpuscular hemoglobin (mass per erythrocyte) 30 pg 25-34 Automated erythrocyte mean corpuscular hemoglobin concentration measurement ( mass/volume) 33 g/dL 32-36 Automated erythrocyte distribution width ratio 15.0 % 10.0-14.5 Automated blood platelet count (count/volume) 193 10*3/uL 130-400 Automated blood platelet mean volume measurement 9.7 [foz_us ] 7.4-10.4 PT panel in platelet poor plasma by coagulation assay - 02/05/16 07:36 Prothrombin time (PT) in platelet poor plasma by coagulation assay 11.6 s 12.2-14.7 INR in platelet poor plasma or blood by coagulation assay 0.9 0.8-1.4 Activated partial thromboplastin time (aPTT) in platelet poor plasma bycoagulation assay - 02/05/16 07:36 Activated partial thromboplastin time (aPTT) in platelet poor plasma bycoagulation assay 27 s 24-35 Comprehensive metabolic panel - 02/05/16 07:36 Serum or plasma sodium measurement (moles/volume) 141 mmol/ L 135-145 Serum or plasma potassium measurement (moles/volume) 4.0 mmol/L 3.6-5.0 Serum or plasma chloride measurement (moles/volume) 106 mmol /L 98-107 Carbon dioxide 25 mmol/L 21-32 Serum or plasma anion gap determination (moles/volume) 10 mmol/L 5-14 Serum or plasma urea nitrogen measurement (mass/volume) 4 mg /dL 7-18 Serum or plasma creatinine measurement (mass/volume) 0.66 mg /dL 0.60-1.30 Serum or plasma urea nitrogen/creatinine mass ratio 6 NRG Serum or plasma creatinine measurement with calculation of estimated glomerular filtration rate > NRG Serum or plasma glucose measurement (mass/volume) 85 mg/dL 70-105 Serum or plasma calcium measurement (mass/volume) 9.3 mg/dL 8.5-10.1 Serum or plasma total bilirubin measurement (mass/volume) 0.3 mg/dL 0.1-1.0 Serum or plasma alkaline phosphatase measurement (enzymatic activity/volume) 90 U/L 40-136 Serum or plasma aspartate aminotransferase measurement (enzymatic activity/ volume) 33 U/L 5-34 Serum or plasma alanine aminotransferase measurement (enzymatic activity/volume ) 25 U/L 0-55 Serum or plasma protein measurement (mass/volume) 7.5 g/dL 6.4-8.2 Serum or plasma albumin measurement (mass/volume) 4.4 g/dL 3.2-4.5 Lipid 1996 panel - 02/05/16 07:36 Serum or plasma triglyceride measurement (mass/volume) 58 mg /dL <150 Serum or plasma cholesterol measurement (mass/volume) 231 mg /dL < 200 Serum or plasma cholesterol in HDL measurement (mass/volume) 107 mg/dL 40-60 Cholesterol in LDL [mass/volume] in serum or plasma by direct assay 107 mg/dL 1-129 Serum or plasma cholesterol in VLDL measurement (mass/volume) 12 mg/dL 5-40 Methicillin resistant Staphylococcus aureus (MRSA) screening culture - 07:36 Methicillin resistant Staphylococcus aureus (MRSA) screening culture NEG NRG Bacteria identification in isolate by anaerobe culture - 02/19/16 15:45 Bacteria identification in isolate by anaerobe culture NG NR Gram stain microscopy - 02/19/16 15:45 GRAM STAIN RESULT NO WBC'S OR BACTERIA OBSERVED NRG Bacteria identification in wound by culture - 02/19/16 15:45 Bacteria identification in wound by culture NG NRG Bacteria identification in isolate by anaerobe culture - 04/08/16 15:50 Bacteria identification in isolate by anaerobe culture NG NRG Gram stain microscopy - 04/08/16 15:50 GRAM STAIN RESULT FEW WBC'S, NO BACTERIA OBSERVED NRG Bacteria identification in wound by culture - 04/08/16 15:50 Bacteria identification in wound by culture [id number] NRG FREE TEXT EXTERNAL PLEASE NOTIFY MICRO AT EXT [address] NRG QUANTITY OF GROWTH Scant Growth NRG FREE TEXT ENTRY 2 REQUESTS A SENSITIVITY ON THIS ISOLATE NRG Bacterial susceptibility panel - 04/08/16 15:50 Gentamicin susceptibility test by minimum inhibitory concentration 8 NRG Tobramycin susceptibility test by minimum inhibitory concentration <= NRG Piperacillin/tazobactam susceptibility test by minimum inhibitory concentration 8 NRG Ciprofloxacin susceptibility test by minimum inhibitory concentration <= NRG Meropenem susceptibility test by minimum inhibitory concentration <= NRG Cefepime susceptibility test by minimum inhibitory concentration 8 NRG Encounters ACCT No. Visit Date/Time Discharge Status Pt. Type Provider Facility Loc./Unit Complaint [id number] 04/08/2016 15:00:00 2016 16:00:00 DIS Outpatient PHILLIP GEORGE MD [facility] WOUNDCARE [id number] 03/20/2016 14:58:00 2016 00:01:00 DIS Outpatient PHILLIP GEORGE MD [facility] WOUNDCARE [id number] 02/05/2016 07:04:00 2015 14:42:00 DIS Outpatient NADEEM HAMLIN MD [facility] CATH PVD,HTN,HLP [id number] 09/25/2015 08:31:00 2015 12:00:00 DIS Outpatient PHILLIP GEORGE MD [facility] WOUNDCARE [id number] 08/14/2015 11:07:00 2015 12:17:00 DIS Emergency DIPAK RODGERS [facility] ER RIGHT LEG RED/SWOLLEN [id number] 05/29/2015 08:16:00 2015 00:01:00 DIS Outpatient PHILLIP GEORGE MD [facility] WOUNDCARE [id number] 03/22/2015 08:36:00 2015 16:00:00 DIS Outpatient YAKELIN HINTON, NADEEM Carmona [facility] PVD,HTN,TOBACCOISM [id number] 01/16/2015 10:26:00 2014 23:59:59 CLS Outpatient J[facility] [employer] [facility] RAD PAIN OF RT LOWER LEG [id number] 09/06/2016 10:59:00 ACT Outpatient JEREMY ANDRADE NEUROLOGY PROFESSOR [facility] RAD EDEMA OF RT L/E R60.0 [id number] 04/09/2016 12:16:00 ACT Outpatient PHILLIP GEORGE MD [facility] RAD L97.212,I87.331,I73.00 [id number] 12/25/2015 14:34:00 ACT Outpatient PHILLIP GEORGE MD [facility] LAB CBC, CMP [id number] 08/28/2015 08:16:00 ACT Outpatient PHILLIP GEORGE MD [facility] WOUNDCARE [id number] 07/31/2015 08:56:00 ACT Outpatient PHILLIP GEORGE MD [facility] RAD RT CALF ULCER [id number] 07/24/2015 09:06:00 ACT Outpatient PHILLIP GEORGE MD [facility] LAB RT CALF ULCER [id number] 04/26/2015 13:35:00 ACT Outpatient PHILLIP GEORGE MD [facility] RAD CHRONIC ULCER OF RIGHT CALF,RAYNAUD'S SYNDROME [id number] 03/16/2015 08:57:00 ACT Outpatient PHILLIP GEORGE MD [facility] RAD RIGHT CALF ULCER,PAD
== END 2016-09-09 14:25 | disposition home or self-care (01) ==
LOC: EDUNIT# 13:27 → ER 13:30
DX: S93.401A Sprain of unspecified ligament of right ankle, initial encounter (principal); I10 Essential (primary) hypertension; E78.00 Pure hypercholesterolemia, unspecified; F17.290 Nicotine dependence, other tobacco product, uncomplicated; Z88.5 Allergy status to narcotic agent; Z79.82 Long term (current) use of aspirin; W01.0XXA Fall on same level from slipping, tripping and stumbling without subsequent striking against object, initial encounter
CPT/HCPCS: 73610; 73630; 99281

== ENCOUNTER → 2016-10-03 | Outpatient (CLI) | payer MEDICAID, OTHER ==
--- NOTE | 2016-10-03 11:15 | Diagnostic Imaging Report ---
EXAMINATION: DEXA study. INDICATION: Osteopenia FINDINGS: Bone mineral density of the lumbar spine, L2-L4 is 0.967 g/cm2 with a T-score of -1.9. This is in the OSTEOPENIA range. Bone mineral density of the left femur is 0.914 g/cm2 with a T-score of -0.7. This is in the NORMAL range. Bone mineral density of the right femur is 0.901 g/cm2 with a T-score of -0.8. This is in the NORMAL range. Total mean density of the hips is 0.908 g/cm2 with a T-score of -0.8. IMPRESSION: This scan is considered OSTEOPENIC according to the World Health Organization guidelines. Dictated by: Dictated on workstation # [id number]
== END ==
LOC: RAD 09:39
PROVIDERS: ATTEND Nurse Practitioner Family
DX: M85.89 Other specified disorders of bone density and structure, multiple sites (principal)
CPT/HCPCS: 77080

== ENCOUNTER → 2017-05-23 | Outpatient (CLI) | payer MEDICAID | LOC: CARD 13:03 | PROVIDERS: ATTEND Family Medicine | DX: R00.2 Palpitations (principal); R42 Dizziness and giddiness | CPT/HCPCS: 93225; 93226 ==

== ENCOUNTER → 2019-04-27 | Outpatient (CLI) | payer MEDICARE, MEDICAID ==
[~2019-04-27] MED LIST changes: -AMLO5TAB2 PO; +AMLO5TAB9 PO; -IBUP-2055 PO; +IBUP-2473 PO; -MINO50CA2 PO; +MINO50CA4 PO; +SIMV20TA26 PO; -SIMV20TA3 PO
--- NOTE | 2019-04-27 17:00 | Diagnostic Imaging Report ---
EXAMINATION: Chest 2 view HISTORY: Cough. COMPARISON: 02/05/2016. FINDINGS: There are new airspace opacities in the right mid zone and left upper zone consistent with pneumonia. No pleural effusion or pneumothorax. Heart size is normal. There is a hiatal hernia. IMPRESSION: 1. Right mid and left upper zone pneumonia. Dictated by: Dictated on workstation # [id number]
== END ==
LOC: RAD 16:20
PROVIDERS: ATTEND Family Medicine
DX: J18.9 Pneumonia, unspecified organism (principal)
CPT/HCPCS: 71046

== ENCOUNTER → 2019-05-18 | Outpatient (CLI) | payer MEDICARE, MEDICAID ==
--- NOTE | 2019-05-18 15:11 | Diagnostic Imaging Report ---
EXAMINATION: CHEST (PA AND LATERAL). CLINICAL INDICATION: 54-year-old female, cough. History of pneumonia. COMPARISON: April 27, 2019. FINDINGS: There is a nodular and somewhat mass-like appearing area of opacification overlying the left upper lobe measuring 3.6 x 3.8 cm in size which does not appear to be substantially changed radiographically since April 27, 2019. The heart size and mediastinal contours are unchanged. There is a moderate to large hiatal hernia. There is no identified pneumothorax. There is no pleural effusion. There is no additional identified focal airspace consolidation. There are degenerative changes of the spine. IMPRESSION: 1. Mass-like area of opacification overlying the left upper lobe which is grossly unchanged radiographically since April 27, 2019. This does raise concern for a more chronic airspace consolidative process including potential malignancy. CT chest with intravenous contrast is recommended for further assessment. 2. Moderate to large hiatal hernia. Dictated by: Dictated on workstation # [id number]
== END ==
LOC: RAD 13:46
PROVIDERS: ATTEND Family Medicine
DX: J18.9 Pneumonia, unspecified organism (principal); K44.9 Diaphragmatic hernia without obstruction or gangrene
CPT/HCPCS: 71046

== ENCOUNTER → 2019-05-21 | Outpatient (CLI) | payer MEDICARE, MEDICAID ==
[~2019-05-21] MED LIST changes: +CATHETER FLUSH 10 ML SYR IV PRN; +HOLD METFORMIN - RECEIVED CONTRAST 20 ML VIAL IV SCH; +IOHEXOL 350 MG/ML 100 ML (OMNIPAQUE 350) VIAL IV ONE; +NS 100 ML (IVPB) BAG IV ONE
[2019-05-21 12:22] LABS: BUN/CREATININE RATIO 8; CREATININE SERUM 0.66 MG/DL (0.60-1.30); GFR ESTIMATED > 60
--- NOTE | 2019-05-21 13:31 | Diagnostic Imaging Report ---
PROCEDURE: CT chest with contrast only. TECHNIQUE: Multiple contiguous axial images were obtained through the chest after administration of intravenous contrast. Auto Exposure Controls were utilized during the CT exam to meet ALARA standards for radiation dose reduction. INDICATION: Abnormal chest x-ray. COMPARISON: Correlation is made with recent chest radiograph from 05/18/2019. FINDINGS: No axillary lymphadenopathy is detected. No definite mediastinal or hilar lymphadenopathy is detected. No pericardial or pleural fluid is identified. There is a large hiatal hernia. Parenchymal evaluation does show a lobulated masslike density in the superior segment of left lower lobe corresponding with the chest radiographic density. This measures 3.4 cm transverse x 2.3 cm AP. The remainder of the lung gaines appear to be clear. Previously noted infiltrate in the right upper lung has resolved. Imaging through the upper abdomen is unremarkable. IMPRESSION: 1. Masslike density in the superior segment of left lower lobe accounting for the chest radiographic density. This is concerning for a lung neoplasm. PET/CT would be useful for further evaluation. No other pulmonary parenchymal abnormalities are seen. There is no evidence of thoracic lymphadenopathy. 2. Large hiatal hernia. Dictated by: Dictated on workstation # [id number]
== END ==
LOC: RAD 11:50
PROVIDERS: ATTEND Family Medicine
DX: K44.9 Diaphragmatic hernia without obstruction or gangrene (principal); R91.8 Other nonspecific abnormal finding of lung field
CPT/HCPCS: 36415; 71260; 82565; 84520

== ENCOUNTER 2019-09-21 13:36 | Outpatient (RCR) | payer MEDICARE, MEDICAID ==
[~2019-09-21 13:36] MED LIST changes: -CATHETER FLUSH 10 ML SYR IV PRN; -HOLD METFORMIN - RECEIVED CONTRAST 20 ML VIAL IV SCH; -IOHEXOL 350 MG/ML 100 ML (OMNIPAQUE 350) VIAL IV ONE; -NS 100 ML (IVPB) BAG IV ONE
== END 2019-12-03 08:51 | disposition home or self-care (01) ==
LOC: ONC 13:36
PROVIDERS: ATTEND Internal Medicine Hematology & Oncology
DX: D64.9 Anemia, unspecified (principal); I10 Essential (primary) hypertension; E78.5 Hyperlipidemia, unspecified; E78.00 Pure hypercholesterolemia, unspecified
CPT/HCPCS: 99214

== ENCOUNTER → 2019-10-11 | Outpatient (CLI) | payer MEDICARE, MEDICAID ==
[2019-10-11 15:53] LABS: HEMATOCRIT 38 % (35-52); HEMOGLOBIN 11.9 G/DL (11.5-16.0); MEAN CORPUSCULAR HEMOGLOBIN 28 PG (25-34); MEAN CORPUSCULAR HGB CONC 32 G/DL (32-36); MEAN CORPUSCULAR VOLUME 89 FL (80-99); RED CELL DISTRIBUTION WIDTH 24.3 % (10.0-14.5); WHITE BLOOD COUNT 8.6 10^3/uL (4.3-11.0)
[2019-10-11 15:54] LABS: BASOPHILS % (AUTO) 1 % (0-10); EOSINOPHILS % (AUTO) 2 % (0-10); LYMPHOCYTES % (AUTO) 13 % (12-44); MEAN PLATELET VOLUME 8.6 FL (7.4-10.4); MONOCYTES % (AUTO) 11 % (0-12); NEUTROPHILS % (AUTO) 74 % (42-75); PLATELET COUNT 236 10^3/uL (130-400)
[2019-10-11 15:55] LABS: EOSINOPHILS # (AUTO) 0.1 10^3/uL (0.0-0.3); LYMPHOCYTES # (AUTO) 1.2 X 10^3 (1.0-4.0); NEUTROPHILS # (AUTO) 6.3 X 10^3 (1.8-7.8)
[2019-10-11 17:05] LABS: ALKALINE PHOSPHATASE 166 U/L (40-136); BILIRUBIN,TOTAL 0.2 MG/DL (0.1-1.0); BUN/CREATININE RATIO 15; CALCIUM 9.5 MG/DL (8.5-10.1); CARBON DIOXIDE 24 MMOL/L (21-32); CHLORIDE 99 MMOL/L (98-107); CREATININE SERUM 0.61 MG/DL (0.60-1.30); GFR ESTIMATED > 60; GLUCOSE 100 MG/DL (70-105); POTASSIUM 4.3 MMOL/L (3.6-5.0); SODIUM 135 MMOL/L (135-145)
[2019-10-11 17:06] LABS: ALANINE AMINOTRANSFERASE 32 U/L (0-55); ALBUMIN 4.5 GM/DL (3.2-4.5)
[2019-10-11 17:33] LABS: ANISOCYTOSIS SLIGHT; BAND NEUTROPHILS 0 %; BASOPHILS % (MANUAL) 3 %; EOSINOPHILS % (MANUAL) 2 %; HYPOCHROMASIA SLIGHT; LYMPHOCYTES % (MANUAL) 21 %; MONOCYTES % (MANUAL) 9 %; NEUTROPHILS % (MANUAL) 65 %
== END ==
LOC: LAB FS 15:27
PROVIDERS: ATTEND Nurse Practitioner Family
DX: D50.0 Iron deficiency anemia secondary to blood loss (chronic) (principal); R91.8 Other nonspecific abnormal finding of lung field
CPT/HCPCS: 36415; 80053; 85007; 85027

== ENCOUNTER → 2019-10-12 | Outpatient (CLI) | payer MEDICARE, MEDICAID ==
[~2019-10-12] MED LIST changes: +CATHETER FLUSH 10 ML SYR IV PRN; +HOLD METFORMIN - RECEIVED CONTRAST 20 ML VIAL IV SCH; +IOHEXOL 350 MG/ML 100 ML (OMNIPAQUE 350) VIAL IV ONE; +NS 100 ML (IVPB) BAG IV ONE
--- NOTE | 2019-10-12 11:10 | Diagnostic Imaging Report ---
EXAMINATION: CT Chest with intravenous contrast. TECHNIQUE: Multiple contiguous axial images were obtained through the chest after the uneventful administration of intravenous contrast. All CT scans use one or more of the following dose optimizing techniques: automated exposure control, MA and/or KvP adjustment based on a patient size and exam type, or iterative reconstruction. HISTORY: Lung mass. COMPARISON: 05/21/2019. FINDINGS: There is no edema or pneumonia. No pleural effusion. No pneumothorax. The left lower lobe mass is unchanged in size measuring 3.4 x 2.3 cm, previously 3.5 x 2.5 cm. This mass has developed internal areas of cavitation. There are few new tree-in-bud nodules in the lingula likely related to aspiration. Heart size is normal. There are mild coronary artery calcifications. No pericardial effusion. Aorta is normal in caliber. There is no axillary or supraclavicular lymphadenopathy. There is no mediastinal lymphadenopathy. There is a large hiatal hernia. Limited views of the upper abdomen are unremarkable. There are no suspicious osseus lesions. IMPRESSION: 1. Stable size of the left lower lobe mass which has developed internal areas of cavitation. This remains highly concerning for lung malignancy and if biopsy has not been performed, then one is recommended. Dictated by: Dictated on workstation # [id number]
== END ==
LOC: RAD 10:05
PROVIDERS: ATTEND Nurse Practitioner Family
DX: R91.8 Other nonspecific abnormal finding of lung field (principal)
CPT/HCPCS: 71260

== ENCOUNTER → 2021-04-26 | Outpatient (CLI) | payer MEDICARE, MEDICAID ==
[~2021-04-26] MED LIST changes: +AMLO-250 PO; -AMLO5TAB9 PO; -LISI-552 PO; +LISI20TA26 PO
[2021-04-26 09:44] LABS: ALBUMIN 3.8 GM/DL (3.2-4.5); BILIRUBIN,TOTAL 0.2 MG/DL (0.1-1.0); CALCIUM 9.6 MG/DL (8.5-10.1); CREATININE SERUM 0.63 MG/DL (0.60-1.30); POTASSIUM 4.1 MMOL/L (3.6-5.0); TOTAL PROTEIN 7.9 GM/DL (6.4-8.2)
--- NOTE | 2021-04-26 10:05 | Diagnostic Imaging Report ---
Indication: Low back pain Lumbar spine AP lateral views of lumbar spine shows normal vertebral body height and alignment. There is disc space narrowing at L4-L5 and L5-S1. IMPRESSION: Degenerative disc changes L4-L5 and L5-S1. Dictated by: Dictated on workstation # [id number]
--- NOTE | 2021-04-26 10:26 | Diagnostic Imaging Report ---
PROCEDURE: CT chest with contrast only. TECHNIQUE: Multiple contiguous axial images were obtained through the chest after administration of intravenous contrast. Auto Exposure Controls were utilized during the CT exam to meet ALARA standards for radiation dose reduction. DATE: April 26, 2021. COMPARISON: CT chest October 12, 2019. INDICATION: 56-year-old female, left lower lobe mass. History of lung cancer. FINDINGS: There is a cavitary thick-walled mass in the left lower lobe measuring 5.2 x 4.8 cm in axial extent. This is increased in size since October 12, 2019 and previously measured 3.2 x 2.0 cm in axial dimension. There is a 5 mm left upper lobe pulmonary nodule on axial image 22 which is mildly increased in size in fullness since October 12, 2019. There is a focal area of predominantly linear opacities in the right upper lobe on axial image 33 which is unchanged since the comparison exam. This also a fairly similar appearing area in the superior aspect of the right lower lobe and mid aspect of the posterior portion of the right lower lobe. These are also unchanged. There is no pneumothorax. There is no pleural effusion. The central airways are patent. The heart is not enlarged. There is no pericardial effusion. There are atherosclerotic calcifications. There is a partially calcified right hilar lymph node on axial image 55 measuring 10 mm in short axis. This is present previously and previously measured approximately 10 mm in short axis. There is no identified abnormally enlarged axillary or supraclavicular lymph node meeting CT size criteria for adenopathy. There is a large hiatal hernia. The additional evaluation of imaged portions of the upper abdomen is unremarkable. There are multilevel degenerative changes of the spine. There is no identified acute bony abnormality. There is no identified bone lesion concerning for a bone metastasis. IMPRESSION: CT CHEST. 1. Cavitary mass in the left lower lobe is notably increased in size since October 12, 2019 consistent with progression of malignancy. 2. No convincing site of ben metastasis or otherwise identified site of metastatic disease in the included [id number]. 3. A large hiatal hernia. Dictated by: Dictated on workstation # [id number]
== END ==
LOC: RAD 09:45
PROVIDERS: ATTEND Nurse Practitioner Family
DX: M54.50 Low back pain, unspecified (principal); I10 Essential (primary) hypertension; R91.8 Other nonspecific abnormal finding of lung field; K44.9 Diaphragmatic hernia without obstruction or gangrene; M51.37 Other intervertebral disc degeneration, lumbosacral region; Z85.118 Personal history of other malignant neoplasm of bronchus and lung
CPT/HCPCS: 36415; 71260; 72100; 80053

== ENCOUNTER 2021-10-11 13:24 | Emergency (ER) | payer MEDICARE, MEDICAID ==
[~2021-10-11] VITALS: Ht 170 cm; Wt 75.0 kg
[~2021-10-11 13:24] MED LIST changes: -CATHETER FLUSH 10 ML SYR IV PRN; -HOLD METFORMIN - RECEIVED CONTRAST 20 ML VIAL IV SCH; -IOHEXOL 350 MG/ML 100 ML (OMNIPAQUE 350) VIAL IV ONE; -NS 100 ML (IVPB) BAG IV ONE
[2021-10-11] MEDS ORDERED: ONDANSETRON 4 MG/2 ML (SDV) Z0FRAN ONE (14:04)
--- NOTE | 2021-10-11 14:22 | ED General ---
General Stated Complaint: VOMITING - WEAKNESS Source of Information: Patient Exam Limitations: No Limitations History of Present Illness Date Seen by Provider: Oct 11, 2021 Time Seen by Provider: 14:20 Initial Comments Patient is a 56-year-old female with a history of lung cancer presents ED with generalized weakness fatigue vomiting, left-sided weakness, left sided visual changes. Symptoms started 2 weeks ago with blurry vision out of the left eye and weakness of the left arm. She states when she tried to grab something it would drop. Patient went to the clinic on friday it and was recommend to follow-up with her primary care physician next week for her symptoms. Started feeling sick on Friday with nausea vomiting with generalized weakness. Vomiting 5+ episodes daily without blood or mucus in her vomit. Denies any diarrhea. She reports mild cough but denies chest pain. She developed a headache on Friday. Has not been able to get out of bed since yesterday with decreased appetite. No oral intake. He reports decreased urine output. No known fever, worsening left-sided weakness, current chest pain, abdominal pain, dysuria. Allergies and Home Medications Allergies Coded Allergies: codeine (Unverified Allergy, Intermediate, HIVES AND SWELLING , 03/22/15) Patient Home Medication List Home Medication List Reviewed: Yes Amlodipine Besylate (Amlodipine Besylate) 5 Mg Tablet, 5 MG PO DAILY, (Reported) Entered as Reported by: EMILE ORTIZ on 02/05/16 0937 Aspirin (Aspirin) 81 Mg Tab.chew, 81 MG PO HS, (Reported) Entered as Reported by: GAMALIEL PUENTE on 03/22/15 101 Clopidogrel Bisulfate (Plavix) 75 Mg Tablet, 75 MG PO DAILY, (Reported) Entered as Reported by: EMILE ORTIZ on 02/05/16 0937 Ibuprofen (Ibuprofen) 200 Mg Tablet, 600 MG PO DAILY, (Reported) Entered as Reported by: GAMALIEL PUENTE on 03/22/15 1017 Lisinopril (Lisinopril) 20 Mg Tablet, 20 MG PO HS, (Reported) Entered as Reported by: GAMALIEL PUENTE on 03/22/15 1017 Omeprazole Magnesium (Prilosec Otc) 20 Mg Tablet.dr, 20 MG PO DAILY, (Reported) Entered as Reported by: GAMALIEL PUENTE on 03/22/15 1017 Simvastatin (Simvastatin) 20 Mg Tablet, 20 MG PO HS, (Reported) Entered as Reported by: GAMALIEL PUENTE on 03/22/15 1017 Review of Systems Review of Systems Constitutional: No chills, No diaphoresis; malaise, weakness EENTM: No blurred vision, No double vision, No mouth pain, No mouth swelling Respiratory: No cough, No dyspnea on exertion, No short of breath Gastrointestinal: No abdominal pain, No diarrhea; nausea, vomiting Genitourinary: No decreased output, No discharge Musculoskeletal: No back pain, No joint pain Skin: No change in color, No change in hair/nails Psychiatric/Neurological: Paresthesia, Other (Left arm weakness, tremoring) All Other Systems Reviewed Negative Unless Noted: Yes Past Ouqnfmj-Qtpisd-Mdnxho Hx Past Medical History Surgeries: Yes (HAMMER TOE, MINA STRIPPINGS) Respiratory: No Cardiac: Yes (LIVIDOID VASCULOPATHY, VENOUS ULCER) High Cholesterol, Hypertension Neurological: No Gastrointestinal: No Musculoskeletal: No Endocrine: No HEENT: No Cancer: No Psychosocial: No Integumentary: Yes (chronic venous stasis ulcer rt lateral ankle) Family Medical History No Pertinent Family Hx Physical Exam Vital Signs Vital Signs - First Documented 10/11/21 14:00 Temp 35.6 Pulse 90 Resp 18 B/P (MAP) 144/86 (105) Pulse Ox 94 Capillary Refill : Height, Weight, BMI Height: 5'7.00" Weight: 135lbs. 0.0oz. 61.697618kg; 21.1 BMI Method:Stated General Appearance: No Apparent Distress, WD/WN Eyes: Bilateral Eye Normal Inspection, Bilateral Eye PERRL, Bilateral Eye EOMI HEENT: PERRL/EOMI, TMs Normal, Normal ENT Inspection Neck: Full Range of Motion, Normal Inspection, Non Tender, Supple Respiratory: Chest Non Tender, Lungs Clear, Normal Breath Sounds, No Accessory Muscle Use, No Respiratory Distress Cardiovascular: Regular Rate, Rhythm, No Edema, No Gallop, No JVD Gastrointestinal: Normal Bowel Sounds, No Organomegaly, No Pulsatile Mass, Non Tender Back: Normal Inspection, No CVA Tenderness, No Vertebral Tenderness Extremity: Other (mottled skin) Neurologic/Psychiatric: Alert, Oriented x3, No Motor/Sensory Deficits, Normal Mood/Affect, counter sales representative II-XII Norm as Tested Focused Exam Lactate Level 10/11/21 14:30: Lactic Acid Level 0.98 Lactic Acid Level Laboratory Tests Test 10/11/21 14:30 Lactic Acid Level 0.98 MMOL/L (0.50-2.00) Progress/Results/Core Measures Suspected Sepsis SIRS Temperature: Pulse: Respiratory Rate: Laboratory Tests 10/11/21 14:03: White Blood Count 10.1 Blood Pressure / Mean: 10/11/21 14:30: Lactic Acid Level 0.98 Laboratory Tests 10/11/21 14:03: Creatinine 0.70, INR Comment 1.0, Platelet Count 289, Total Bilirubin 0.4 Results/Orders Lab Results Laboratory Tests Test 10/11/21 14:03 10/11/21 14:30 10/11/21 14:39 10/11/21 18:20 Range/Units White Blood Count 10.1 4.3-11.0 10^3/uL Red Blood Count 4.74 3.80-5.11 10^6/uL Hemoglobin 14.7 11.5-16.0 g/dL Hematocrit 45 35-52 % Mean Corpuscular Volume 95 80-99 fL Mean Corpuscular Hemoglobin 31 25-34 pg Mean Corpuscular Hemoglobin Concent 33 32-36 g/dL Red Cell Distribution Width 12.7 10.0-14.5 % Platelet Count 289 130-400 10^3/uL Mean Platelet Volume 9.6 9.0-12.2 fL Immature Granulocyte % (Auto) 0 % Neutrophils (%) (Auto) 86 H 42-75 % Lymphocytes (%) (Auto) 5 L 12-44 % Monocytes (%) (Auto) 8 0-12 % Eosinophils (%) (Auto) 1 0-10 % Basophils (%) (Auto) 0 0-10 % Neutrophils # (Auto) 8.6 H 1.8-7.8 10^3/uL Lymphocytes # (Auto) 0.5 L 1.0-4.0 10^3/uL Monocytes # (Auto) 0.8 0.0-1.0 10^3/uL Eosinophils # (Auto) 0.1 0.0-0.3 10^3/uL Basophils # (Auto) 0.0 0.0-0.1 10^3/uL Immature Granulocyte # (Auto) 0.0 0.0-0.1 10^3/uL Neutrophils % (Manual) 88 % Lymphocytes % (Manual) 3 % Monocytes % (Manual) 7 % Eosinophils % (Manual) 1 % Basophils % (Manual) 0 % Band Neutrophils 1 % Blood Morphology Comment NORMAL Prothrombin Time 13.1 12.2-14.7 SEC INR Comment 1.0 0.8-1.4 Activated Partial Thromboplast Time 33 24-35 SEC Sodium Level 138 135-145 MMOL/L Potassium Level 3.7 3.6-5.0 MMOL/L Chloride Level 96 L 98-107 MMOL/L Carbon Dioxide Level 25 21-32 MMOL/L Anion Gap 17 H 5-14 MMOL/L Blood Urea Nitrogen 9 7-18 MG/DL Creatinine 0.70 0.60-1.30 MG/DL Estimat Glomerular Filtration Rate 101 BUN/Creatinine Ratio 13 Glucose Level 111 H 70-105 MG/DL Calcium Level 10.6 H 8.5-10.1 MG/DL Corrected Calcium 10.3 H 8.5-10.1 MG/DL Magnesium Level 2.1 1.6-2.4 MG/DL Total Bilirubin 0.4 0.1-1.0 MG/DL Aspartate Amino Transf (AST/SGOT) 24 5-34 U/L Alanine Aminotransferase (ALT/SGPT) 17 0-55 U/L Alkaline Phosphatase 150 H 40-136 U/L Troponin I < 0.028 <0.028 NG/ML C-Reactive Protein High Sensitivity 6.50 H 0.00-0.50 MG/DL B-Type Natriuretic Peptide 30.2 <100.0 PG/ML Total Protein 8.8 H 6.4-8.2 GM/DL Albumin 4.4 3.2-4.5 GM/DL Serum Alcohol < 10 <10 MG/DL Lactic Acid Level 0.98 0.50-2.00 MMOL/L Influenza Type A (RT-PCR) Not Detected Not Detecte Influenza Type B (RT-PCR) Not Detected Not Detecte SARS-CoV-2 RNA (RT-PCR) Not Detected Not Detecte Urine Color YELLOW Urine Clarity CLEAR Urine pH 6.0 5-9 Urine Specific [place] 1.015 L 1.016-1.022 Urine Protein NEGATIVE NEGATIVE Urine Glucose (UA) NEGATIVE NEGATIVE Urine Ketones 1+ H NEGATIVE Urine Nitrite NEGATIVE NEGATIVE Urine Bilirubin 1+ H NEGATIVE Urine Urobilinogen 1.0 < = 1.0 MG/DL Urine Leukocyte Esterase NEGATIVE NEGATIVE Urine RBC (Auto) NEGATIVE NEGATIVE Urine RBC 0-2 /HPF Urine WBC RARE /HPF Urine Squamous Epithelial Cells 5-10 /HPF Urine Crystals NONE /LPF Urine Bacteria TRACE /HPF Urine Casts NONE /LPF Urine Mucus NEGATIVE /LPF Urine Culture Indicated NO My Orders Orders - EMMETT MEDINA PA Cbc With Automated Diff (10/11/21 14:16) Comprehensive Metabolic Panel (10/11/21 14:16) Blood Culture (10/11/21 14:16) Urinalysis (10/11/21 14:16) Protime With Inr (10/11/21 14:16) Partial Thromboplastin Time (10/11/21 14:16) Chest 1 View, Ap/Pa Only (10/11/21 14:16) Ed Iv/Invasive Line Start (10/11/21 14:16) Lactic Acid Analyzer (10/11/21 14:16) Ns Iv 1000 Ml (Sodium Chloride 0.9%) (10/11/21 14:30) Magnesium (10/11/21 14:16) Bnp Mary (10/11/21 14:16) Troponin I Mary (10/11/21 14:16) Ct Head Wo (10/11/21 14:16) Covid 19 Inhouse Test (10/11/21 14:16) Influenza A And B By Pcr (10/11/21 14:16) Alcohol (10/11/21 14:16) Hs C Reactive Protein (10/11/21 14:16) Manual Differential (10/11/21 14:03) Promethazine Injection (Phenergan Injec (10/11/21 19:00) Medications Given in ED Current Medications Medications Dose Ordered Sig/Marino Route Start Time Stop Time Status Last Admin Dose Admin Ondansetron HCl 4 mg STK-MED ONCE .ROUTE 10/11/21 14:04 10/11/21 14:08 DC 10/11/21 14:10 8 MG Promethazine HCl 25 mg ONCE ONCE IVP 10/11/21 19:00 10/11/21 19:01 DC 10/11/21 18:57 25 MG Vital Signs/I&O 10/11/21 14:00 Temp 35.6 Pulse 90 Resp 18 B/P (MAP) 144/86 (105) Pulse Ox 94 Capillary Refill : Departure Communication (PCP) Patient with a history of lung cancer not currently being treated as she opt out of treatment. Started having some pain numbness and tingling loss of motor function of her left arm 2 weeks ago. Patient reports visual changes out of her left eye that is blurry. She did have appropriate intact visual field noted on exam. Normal eye tracking. Some mild weakness to the left arm without evidence of shaking. Due to to the length of symptoms she was not a tPA candidate. Due to her lung cancer concerning for metastasis to the brain. CT abdomen pelvis concerning for a left cerebellum mass versus subacute or acute infarct. Patient with vomiting generalized weakness since Friday. Has not been wanting to get out of bed. History of alcohol abuse, smoking. Chest x-ray concerning for worsening left wall cavitary lesion.. She denies of any chest pain or or feeling short of breath at this time. She is not hypoxic but slightly tachycardic. Due to her current symptoms and concern for possible brain lesion MRI with and without was recommended. MRI left for the day. Discussed patient with Dr. Quiñonez hospitalist for admission for MRI further evaluation. Due to her current presentation and results from the CT scan she recommended transfer to for further evaluation for oncology consult and neurosurgery consult as she is she believes this is cancerous which I do agree. Patient agrees with transfer. Patient was accepted by Dr. Arguelles at [facility]. Urinalysis is still pending. Normal white blood count. Lab work was otherwise unremarkable besides slightly dehydrated. She was given a liter of fluid. Zofran for her nausea and vomiting here. No specific abdominal tenderness on palpation. 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 No worsening pain at this time. mottled skin noted to the lower extremities. She states sees wound care secondary to ulcers bilateral heels. Impression Primary Impression: Lung cancer Additional Impression: Brain lesion Disposition: XF SHT-TRM HOSP Condition: Stable Transfer Transfer Reason: Exceeds level of care Time Spoke to Accepting Phy: 18:[address] Arguelles excepting at [facility] Transfer Time: 18:17 Transfer Facility: [facility] Method of Transfer: EMS Departure-Patient Inst. [place] [facility] [place] Primary Care Physician EMILE CAMPBELL APRN (Family) Primary Care Physician EMMETT MEDINA Oct 11, 2021 14:22
[2021-10-11 14:27] LABS: BASOPHILS % (AUTO) 0 % (0-10); EOSINOPHILS # (AUTO) 0.1 10^3/uL (0.0-0.3); EOSINOPHILS % (AUTO) 1 % (0-10); HEMATOCRIT 45 % (35-52); HEMOGLOBIN 14.7 g/dL (11.5-16.0); LYMPHOCYTES # (AUTO) 0.5 10^3/uL (1.0-4.0); LYMPHOCYTES % (AUTO) 5 % (12-44); MEAN CORPUSCULAR HEMOGLOBIN 31 pg (25-34); MEAN CORPUSCULAR HGB CONC 33 g/dL (32-36); MEAN CORPUSCULAR VOLUME 95 fL (80-99); MEAN PLATELET VOLUME 9.6 fL (9.0-12.2); MONOCYTES # (AUTO) 0.8 10^3/uL (0.0-1.0); MONOCYTES % (AUTO) 8 % (0-12); NEUTROPHILS # (AUTO) 8.6 10^3/uL (1.8-7.8); NEUTROPHILS % (AUTO) 86 % (42-75); PLATELET COUNT 289 10^3/uL (130-400); WHITE BLOOD COUNT 10.1 10^3/uL (4.3-11.0)
[2021-10-11] MEDS ORDERED: NS IV 1000 ML 1,000 ML IV SCH (14:30)
[2021-10-11 14:31] LABS: ALBUMIN 4.4 GM/DL (3.2-4.5); CHLORIDE 96 MMOL/L (98-107); POTASSIUM 3.7 MMOL/L (3.6-5.0); SODIUM 138 MMOL/L (135-145)
[2021-10-11 14:32] LABS: CALCIUM 10.6 MG/DL (8.5-10.1)
[2021-10-11 14:34] LABS: GLUCOSE 111 MG/DL (70-105); TOTAL PROTEIN 8.8 GM/DL (6.4-8.2)
[2021-10-11 14:35] LABS: CARBON DIOXIDE 25 MMOL/L (21-32)
[2021-10-11 14:36] LABS: BILIRUBIN,TOTAL 0.4 MG/DL (0.1-1.0); PROTHROMBIN TIME PATIENT 13.1 SEC (12.2-14.7)
[2021-10-11 14:37] LABS: ALKALINE PHOSPHATASE 150 U/L (40-136)
[2021-10-11 14:38] LABS: GFR ESTIMATED 101
[2021-10-11 14:39] LABS: BUN/CREATININE RATIO 13
[2021-10-11 14:41] LABS: ALANINE AMINOTRANSFERASE 17 U/L (0-55); MAGNESIUM 2.1 MG/DL (1.6-2.4)
[2021-10-11 14:50] LABS: BAND NEUTROPHILS 1 %; BASOPHILS % (MANUAL) 0 %; EOSINOPHILS % (MANUAL) 1 %; LYMPHOCYTES % (MANUAL) 3 %; MONOCYTES % (MANUAL) 7 %; NEUTROPHILS % (MANUAL) 88 %; RBC MORPH NORMAL
--- NOTE | 2021-10-11 16:04 | Diagnostic Imaging Report ---
Clinical indications: Patient with headache, vomiting and left-sided weakness. Patient with history of lung cancer. Exam: Axial CT scan of the brain without IV contrast with coronal and sagittal reformatted images. Auto Exposure Controls were utilized during the CT exam to meet ALARA standards for radiation dose reduction. Comparison: None Findings: There is a moderate-sized low-density area involving the upper aspect of the superior cerebellar hemisphere. It is difficult to measure in its entirety, but measures 3.0 cm x 3.1 cm x 2.9 cm (AP x Trans x CC) . There is also small area of low density adjacent to this area. There is slight mass effect upon the 4th ventricle on the left side. There is no other area of abnormal brain parenchymal signal. There is no hydrocephalus, significant brain herniation. Basal cisterns are unremarkable. Extracranial soft tissue, skull, and orbits, unremarkable. There is a partially visualized fluid in the left maxillary sinus. Mastoid air cells are clear. IMPRESSION: 1: There is a moderate sized area of low density involving the upper aspect of left cerebellum. This area may represent an intraparenchymal mass. Acute/subacute cerebral infarct also cannot be completely excluded. MRI of the brain with and without contrast is suggested for further evaluation. 2: There is no other acute intracranial process. There is no hydrocephalus. Results of this report discussed with EMEKA Brush, via the telephone on 10/03/2021 at 1558 hours. Dictated by: Dictated on workstation # [id number]
--- NOTE | 2021-10-11 16:15 | Diagnostic Imaging Report ---
INDICATION: Cough. COMPARISON: Radiographs dated 05/18/[address] dated 04/26/2021. TECHNIQUE: Single radiograph of the chest dated 10/11/2021. FINDINGS: Previously noted thick-walled cavitary lesion within the left mid to upper lung is again identified, appearing worsened since the prior examination, measuring 8 cm in cranial to caudal dimension when previously it was measuring approximately 4.7 cm. This is associated with increasing prominence of the left hilar region. The cardiac silhouette is otherwise within normal limits in size. No significant pulmonary vascular congestion. Low lung volumes. The right lung is clear. No significant pleural effusion. No pneumothorax. Moderate-sized hiatal hernia. No acute osseous abnormality. IMPRESSION: Worsening thick-walled cavitary lesion within the left mid lung. Findings are concerning for worsening malignancy versus worsening infectious cavitary lesion. Recommend CT-guided biopsy for further evaluation if this has not already been performed. Developing prominence of the left hilar region, concerning for developing adenopathy. This could be confirmed with a CT of the chest. Moderate-sized hiatal hernia. Dictated by: Dictated on workstation # [id number]
[2021-10-11 18:28] LABS: CLARITY,URINE CLEAR; COLOR,URINE YELLOW; GLUCOSE, URINE (UA) NEGATIVE (NEGATIVE); KETONES,URINE 1+ (NEGATIVE); LEUKOCYTE ESTERASE ,URINE NEGATIVE (NEGATIVE); NITRITE,URINE NEGATIVE (NEGATIVE); PROTEIN,URINE NEGATIVE (NEGATIVE)
[2021-10-11 18:37] LABS: BACTERIA,URINE TRACE /HPF; BILIRUBIN,URINE 1+ (NEGATIVE); RBC,URINE 0-2 /HPF; WBC,URINE RARE /HPF
[2021-10-11 18:58] VITALS: BP 151/88
[2021-10-11] MEDS ORDERED: PROMETHAZINE INJ 25 MG/ML (PHENERGAN) AMP IVP ONE (19:00)
== END 2021-10-11 19:03 | disposition short-term general hospital (02) ==
LOC: EDUNIT# 13:24 → ER 13:26
DX: R11.2 Nausea with vomiting, unspecified (principal); C34.90 Malignant neoplasm of unspecified part of unspecified bronchus or lung; G93.9 Disorder of brain, unspecified; R00.0 Tachycardia, unspecified; Z28.310 Unvaccinated for COVID-19
CPT/HCPCS: 70450; 71045; 80053; 81000; 83605; 83735; 83880; 84484; 85007; 85027; 85610; 85730; 86141; 87040; 87636; 99285; G0480; 36415; 80320

== ENCOUNTER 2021-11-30 15:56 | Emergency (ER) | payer MEDICARE, MEDICAID ==
[~2021-11-30] VITALS: Ht 170.1 cm; Wt 71.3 kg
--- NOTE | 2021-11-30 16:12 | ED Integumentary General ---
General Chief Complaint: Skin/Wound Problems Stated Complaint: WOUND CHECK History of Present Illness Date Seen by Provider: Nov 30, 2021 Time Seen by Provider: 16:12 Initial Comments 56-year-old female checked in because she has a dehisced wound from a surgery on her neck done on November 02, 2021. She initially checked and stated that she just wanted to be "worked" when I asked her what her concern was she stated that since she was coming here anyway she want to have it looked at. When I asked her why she was coming here patient states that she also has some right lower chest/right upper quadrant pain that has been there since last night. Patient neck wound is from brain surgery due to metastatic lung cancer. Patient has known lung cancer on the area of her pain. Patient reports that she missed an appointment with her regular provider so came here since she was here. Patient denies any shortness of breath. Patient denies any nausea or vomiting. Patient denies any abdominal surgeries. Patient continues to smoke and drinks 1-3 beers nightly. Allergies and Home Medications Allergies Coded Allergies: codeine (Unverified Allergy, Intermediate, HIVES AND SWELLING , 03/22/15) Patient Home Medication List Home Medication List Reviewed: Yes Amlodipine Besylate (Amlodipine Besylate) 5 Mg Tablet, 5 MG PO DAILY, (Reported) Entered as Reported by: EMILE ORTIZ on 02/05/16 0937 Aspirin (Aspirin) 81 Mg Tab.chew, 81 MG PO HS, (Reported) Entered as Reported by: GAMALIEL PUENTE on 03/22/15 1017 Clopidogrel Bisulfate (Plavix) 75 Mg Tablet, 75 MG PO DAILY, (Reported) Entered as Reported by: EMILE ORTIZ on 02/05/16 0937 Ibuprofen (Ibuprofen) 200 Mg Tablet, 600 MG PO DAILY, (Reported) Entered as Reported by: GAMALIEL PUENTE on 03/22/15 1017 Lisinopril (Lisinopril) 20 Mg Tablet, 20 MG PO HS, (Reported) Entered as Reported by: GAMALIEL PUENTE on 03/22/15 1017 Omeprazole Magnesium (Prilosec Otc) 20 Mg Tablet.dr, 20 MG PO DAILY, (Reported) Entered as Reported by: GAMALIEL PUENTE on 03/22/15 1017 Simvastatin (Simvastatin) 20 Mg Tablet, 20 MG PO HS, (Reported) Entered as Reported by: GAMALIEL PUENTE on 03/22/15 1017 Review of Systems Review of Systems Constitutional: No chills, No fever EENTM: see HPI Respiratory: see HPI Cardiovascular: see HPI Gastrointestinal: abdominal pain; No diarrhea, No nausea, No vomiting Genitourinary: no symptoms reported Musculoskeletal: no symptoms reported Skin: see HPI Psychiatric/Neurological: No Symptoms Reported Past Ugocxoo-Nydjqj-Xzgycr Hx Past Medical History Surgery/Hospitalization HX: CHRONIC VASCULAR WOUNDS, LUNG CA, HIGH BLOOD PRESSURE. Surgeries: Yes (HAMMER TOE, MINA STRIPPINGS) Respiratory: No Cardiac: Yes (LIVIDOID VASCULOPATHY, VENOUS ULCER) High Cholesterol, Hypertension Neurological: No Gastrointestinal: No Musculoskeletal: No Endocrine: No HEENT: No Cancer: No Psychosocial: No Integumentary: Yes (chronic venous stasis ulcer rt lateral ankle) Family Medical History No Pertinent Family Hx Physical Exam Vital Signs Vital Signs - First Documented 11/30/21 16:15 Temp 36.8 Pulse 120 Resp 20 B/P (MAP) 135/76 (95) Pulse Ox 100 O2 Delivery Room Air Capillary Refill : General Appearance: cachetic, other (Chronically ill) HEENT: PERRL/EOMI Neck: other (Approximate 2 cm dehisced incision with appropriate healing, no signs of infection) Cardiovascular: no edema, tachycardia Respiratory: no respiratory distress, no accessory muscle use, wheezing (Mild diffuse) Gastrointestinal: soft, tenderness (Mild tenderness right upper quadrant but more up in the chest wall under the breast) Extremities: normal range of motion; No swelling Neurologic/Psychiatric: alert, oriented x 3 Skin: other (2 cm dehisced incision with appropriate healing) Progress/Results/Core Measures Results/Orders Lab Results Laboratory Tests Test 11/30/21 16:23 Range/Units White Blood Count 6.8 4.3-11.0 10^3/uL Red Blood Count 3.51 L 3.80-5.11 10^6/uL Hemoglobin 9.7 L 11.5-16.0 g/dL Hematocrit 31 L 35-52 % Mean Corpuscular Volume 89 80-99 fL Mean Corpuscular Hemoglobin 28 25-34 pg Mean Corpuscular Hemoglobin Concent 31 L 32-36 g/dL Red Cell Distribution Width 15.2 H 10.0-14.5 % Platelet Count 307 130-400 10^3/uL Mean Platelet Volume 9.8 9.0-12.2 fL Immature Granulocyte % (Auto) 1 % Neutrophils (%) (Auto) 76 H 42-75 % Lymphocytes (%) (Auto) 12 12-44 % Monocytes (%) (Auto) 10 0-12 % Eosinophils (%) (Auto) 0 0-10 % Basophils (%) (Auto) 1 0-10 % Neutrophils # (Auto) 5.2 1.8-7.8 10^3/uL Lymphocytes # (Auto) 0.8 L 1.0-4.0 10^3/uL Monocytes # (Auto) 0.7 0.0-1.0 10^3/uL Eosinophils # (Auto) 0.0 0.0-0.3 10^3/uL Basophils # (Auto) 0.0 0.0-0.1 10^3/uL Immature Granulocyte # (Auto) 0.1 0.0-0.1 10^3/uL Sodium Level 129 L 135-145 MMOL/L Potassium Level 3.6 3.6-5.0 MMOL/L Chloride Level 91 L 98-107 MMOL/L Carbon Dioxide Level 25 21-32 MMOL/L Anion Gap 13 5-14 MMOL/L Blood Urea Nitrogen 9 7-18 MG/DL Creatinine 0.59 L 0.60-1.30 MG/DL Estimat Glomerular Filtration Rate 105 BUN/Creatinine Ratio 15 Glucose Level 101 70-105 MG/DL Calcium Level 8.5 8.5-10.1 MG/DL Corrected Calcium 9.1 8.5-10.1 MG/DL Total Bilirubin 0.4 0.1-1.0 MG/DL Aspartate Amino Transf (AST/SGOT) 28 5-34 U/L Alanine Aminotransferase (ALT/SGPT) 16 0-55 U/L Alkaline Phosphatase 136 40-136 U/L Total Protein 6.4 6.4-8.2 GM/DL Albumin 3.2 3.2-4.5 GM/DL Lipase 19 8-78 U/L My Orders Orders - SLADE,ZONIA L DO Cbc With Automated Diff (11/30/21 16:17) Comprehensive Metabolic Panel (11/30/21 16:17) Lipase (11/30/21 16:17) Acute Abd Series (11/30/21 16:17) Lactated Ringers (Lr 1000 Ml Iv Solution (11/30/21 16:17) Ketorolac Injection (Toradol Injection) (11/30/21 16:17) Albuterol/Ipra Inhalation Soln (Duoneb I (11/30/21 16:30) Svn Small Volume Nebulizer (11/30/21 16:22) Medications Given in ED Current Medications Medications Dose Ordered Sig/Marino Route Start Time Stop Time Status Last Admin Dose Admin Albuterol/ Ipratropium 3 ml ONCE ONCE INH 11/30/21 16:30 11/30/21 16:31 DC 11/30/21 16:32 3 ML Vital Signs/I&O 11/30/21 11/30/21 16:15 17:57 Temp 36.8 36.8 Pulse 120 101 Resp 20 20 B/P (MAP) 135/76 (95) 124/68 Pulse Ox 100 100 O2 Delivery Room Air Room Air Progress Progress Note : Progress Note Patient's x-ray is concerning for right lower lobe pneumonia which is consistent with her pain. Patient reports that she has Augmentin that she was recently prescribed but did not take. Patient was encouraged to start her Augmentin since we would not need to restart a new antibiotic. Recommend she follow-up with her primary care provider next week. Patient has an already scheduled appointment with her oncologist next week when she could review further imaging. Patient stable and discharged Diagnostic Imaging Diagonstic Imaging: Xray Plain Films/CT/US/NM/MRI: chest, abdomen Comments Date of Exam:11/30/21 ACUTE ABD SERIES ACUTE ABD SERIES INDICATION: Right upper quadrant pain. COMPARISON: Chest radiograph of 10/11/2021. TECHNIQUE: AP chest and abdomen. FINDINGS: The left perihilar mass now has an air-fluid level within it. New right basilar ill-defined pulmonary consolidations. No pleural effusion or pneumothorax. Nonobstructive bowel gas pattern. No free intraperitoneal air. Normal regional skeleton. IMPRESSION: 1. Left perihilar mass now has air-fluid level in it, indicative of a cavitary lesion. This may be a necrotic neoplasm versus infection. 2. New right basilar consolidations are likely due to pneumonia. 3. Nonobstructive bowel gas pattern and no free intraperitoneal air. Reviewed: Reviewed by Me, Reviewed/Discussed Departure Impression Primary Impression: Pneumonia Qualified Codes: J18.9 - Pneumonia, unspecified organism Disposition: 01 HOME, SELF-CARE Condition: Stable Departure-Patient Inst. Referrals: [facility] (PCP) Primary Care Physician EMILE CAMPBELL APRN (Family) Primary Care Physician Patient Instructions: Pneumonia, Adult ED Add. Discharge Instructions: Please take your Augmentin as already been prescribed as directed Follow-up with your primary care provider Friday or Friday next week Please keep your oncology appointment Return to the ER over the weekend if symptoms worsen or with any other concerns All discharge instructions reviewed with patient and/or family. Voiced understanding. ZONIA SLADE DO Nov 30, 2021 16:12
[2021-11-30] MEDS ORDERED: KETOROLAC 30 MG/ML VIAL IVP STA (16:17)
[2021-11-30] MEDS ORDERED: LACTATED RINGERS 1,000 ML IV STA (16:17)
[2021-11-30] MEDS ORDERED: RT-ALBUTEROL/IPRATROPIUM 3 ML (DUONEB) VIAL INH ONE (16:30)
[2021-11-30 16:31] LABS: BASOPHILS % (AUTO) 1 % (0-10); EOSINOPHILS % (AUTO) 0 % (0-10); HEMATOCRIT 31 % (35-52); HEMOGLOBIN 9.7 g/dL (11.5-16.0); LYMPHOCYTES # (AUTO) 0.8 10^3/uL (1.0-4.0); LYMPHOCYTES % (AUTO) 12 % (12-44); MEAN CORPUSCULAR HEMOGLOBIN 28 pg (25-34); MEAN CORPUSCULAR HGB CONC 31 g/dL (32-36); MEAN CORPUSCULAR VOLUME 89 fL (80-99); MEAN PLATELET VOLUME 9.8 fL (9.0-12.2); MONOCYTES # (AUTO) 0.7 10^3/uL (0.0-1.0); MONOCYTES % (AUTO) 10 % (0-12); NEUTROPHILS # (AUTO) 5.2 10^3/uL (1.8-7.8); NEUTROPHILS % (AUTO) 76 % (42-75); PLATELET COUNT 307 10^3/uL (130-400); WHITE BLOOD COUNT 6.8 10^3/uL (4.3-11.0)
[2021-11-30 16:46] LABS: CALCIUM 8.5 MG/DL (8.5-10.1); CREATININE SERUM 0.59 MG/DL (0.60-1.30); POTASSIUM 3.6 MMOL/L (3.6-5.0)
[2021-11-30 16:47] LABS: ALBUMIN 3.2 GM/DL (3.2-4.5); BILIRUBIN,TOTAL 0.4 MG/DL (0.1-1.0); TOTAL PROTEIN 6.4 GM/DL (6.4-8.2)
--- NOTE | 2021-11-30 17:07 | Diagnostic Imaging Report ---
ACUTE ABD SERIES INDICATION: Right upper quadrant pain. COMPARISON: Chest radiograph of 10/11/2021. TECHNIQUE: AP chest and abdomen. FINDINGS: The left perihilar mass now has an air-fluid level within it. New right basilar ill-defined pulmonary consolidations. No pleural effusion or pneumothorax. Nonobstructive bowel gas pattern. No free intraperitoneal air. Normal regional skeleton. IMPRESSION: 1. Left perihilar mass now has air-fluid level in it, indicative of a cavitary lesion. This may be a necrotic neoplasm versus infection. 2. New right basilar consolidations are likely due to pneumonia. 3. Nonobstructive bowel gas pattern and no free intraperitoneal air. Dictated by: Dictated on workstation # [id number]
[2021-11-30 17:57] VITALS: BP 124/68
== END 2021-11-30 17:56 | disposition home or self-care (01) ==
LOC: EDUNIT# 15:56 → ER FS 15:57
DX: J18.9 Pneumonia, unspecified organism (principal); Z28.310 Unvaccinated for COVID-19
CPT/HCPCS: 36415; 74022; 80053; 83690; 85025; 94640

== ENCOUNTER 2022-04-27 09:34 | Inpatient (IN) | payer MEDICARE, MEDICAID ==
[~2022-04-27] VITALS: Ht 170.2 cm; Wt 61.2 kg
[2022-04-27] VITALS (9 sets, daily range): BP systolic 120–160; BP diastolic 75–84
[~2022-04-27 09:34] MED LIST changes: +CLOP-31 PO; -CLOP75TA69 PO
[2022-04-27 09:54] LABS: BASOPHILS % (AUTO) 0 % (0-10); EOSINOPHILS % (AUTO) 0 % (0-10); HEMATOCRIT 44 % (35-52); HEMOGLOBIN 13.3 g/dL (11.5-16.0); LYMPHOCYTES # (AUTO) 0.3 10^3/uL (1.0-4.0); LYMPHOCYTES % (AUTO) 2 % (12-44); MEAN CORPUSCULAR HEMOGLOBIN 26 pg (25-34); MEAN CORPUSCULAR HGB CONC 30 g/dL (32-36); MEAN CORPUSCULAR VOLUME 84 fL (80-99); MEAN PLATELET VOLUME 8.9 fL (9.0-12.2); MONOCYTES # (AUTO) 1.2 10^3/uL (0.0-1.0); MONOCYTES % (AUTO) 6 % (0-12); NEUTROPHILS % (AUTO) 91 % (42-75); PLATELET COUNT 248 10^3/uL (130-400); WHITE BLOOD COUNT 19.8 10^3/uL (4.3-11.0)
--- NOTE | 2022-04-27 09:55 | ED Fall/Injury ---
General Chief Complaint: Trauma-Non Activation Stated Complaint: FALL Source: patient Exam Limitations: no limitations History of Present Illness Date Seen by Provider: Apr 27, 2022 Time Seen by Provider: 09:36 Initial Comments Here with report of fall at home this morning at about 5 AM when she was getting up. She apparently fell on her left side. She denies hitting her head but she also does not completely remember. She is quite weak. EMS was summoned and brought her here. They did report normal vital signs and normal mentation although also reported the weakness. Last blood pressure was 120s over 70s with O2 sats in the 90s per EMS. Patient does have of brain cancer and did have surgery for that. She is on immunotherapy currently with last dose 3 days ago. She will get that again in 3 weeks. She has's back pain but states it is normal and typical and unchanged. She does admit to significant weakness. She reports this seems to be a little worse recently. Denies diarrhea but does have the urge to defecate currently and actually may have been incontinent of stool prior to arrival. Does have history of greater than id has purple color to hands and feet bilateral that she states is typical and unchanged and improved with warming. Denies fever chills, chest pain, runny nose, cough Occurred: this morning Severity: mild Injuries/Pain Location: other (Persistent weakness but no reported injury) Context: lost balance Loss of Consciousness: no loss of consciousness Associated Symptoms (Fall): No Abdominal Pain, No Chest Pain, No Confusion, No Muscle Spasms, No Nausea/Vomiting, No Neck Pain Allergies and Home Medications Allergies Coded Allergies: codeine (Unverified Allergy, Intermediate, HIVES AND SWELLING , 03/22/15) Patient Home Medication List Home Medication List Reviewed: Yes Amlodipine Besylate (Amlodipine Besylate) 5 Mg Tablet, 5 MG PO DAILY, (Reported) Entered as Reported by: EMILE ORTIZ on 02/05/16 0937 Aspirin (Aspirin) 81 Mg Tab.chew, 81 MG PO HS, (Reported) Entered as Reported by: GAMALIEL PUENTE on 03/22/15 1017 Clopidogrel Bisulfate (Plavix) 75 Mg Tablet, 75 MG PO DAILY, (Reported) Entered as Reported by: EMILE ORTIZ on 02/05/16 0937 Ibuprofen (Ibuprofen) 200 Mg Tablet, 600 MG PO DAILY, (Reported) Entered as Reported by: GAMALIEL PUENTE on 03/22/15 1017 Lisinopril (Lisinopril) 20 Mg Tablet, 20 MG PO HS, (Reported) Entered as Reported by: GAMALIEL PUENTE on 03/22/15 1017 Omeprazole Magnesium (Prilosec Otc) 20 Mg Tablet.dr, 20 MG PO DAILY, (Reported) Entered as Reported by: GAMALIEL PUENTE on 03/22/15 101 Simvastatin (Simvastatin) 20 Mg Tablet, 20 MG PO HS, (Reported) Entered as Reported by: GAMALIEL PUENTE on 03/22/15 1017 Review of Systems Review of Systems Constitutional: see HPI; No chills, No fever; weakness Eyes: No Symptoms Reported Ears, Nose, Mouth, Throat: no symptoms reported Respiratory: No cough, No short of breath Cardiovascular: No chest pain; edema Gastrointestinal: No nausea, No vomiting Genitourinary: No dysuria Musculoskeletal: back pain, muscle weakness Skin: change in color; No lesions Past Vxkroik-Rreglq-Eshrkw Hx Patient Social History Tobacco Use?: Yes Tobacco type used: Cigarettes Smoking Status: Current Everyday Smoker Use of E-Cig and/or Vaping dev: No Substance use?: No Alcohol Use?: Yes Alcohol type: Beer Alcohol Frequency: Once in a while Immunizations Up To Date First/Initial COVID19 Vaccinat: Not currently vaccinated Past Medical History Surgery/Hospitalization HX: CHRONIC VASCULAR WOUNDS, LUNG CA, HIGH BLOOD PRESSURE. Brain tumor removal (10-23-21) Surgeries: Yes (HAMMER TOE, MINA STRIPPINGS) Respiratory: No Cardiac: Yes (LIVIDOID VASCULOPATHY, VENOUS ULCER) High Cholesterol, Hypertension Neurological: No Gastrointestinal: No Musculoskeletal: No Endocrine: No HEENT: No Cancer: No Psychosocial: No Integumentary: Yes (chronic venous stasis ulcer rt lateral ankle) Family Medical History Reviewed Nursing Family Hx No Pertinent Family Hx Physical Exam Vital Signs Vital Signs - First Documented 04/27/22 09:36 Temp 36.3 Pulse 64 Resp 16 B/P (MAP) 89/64 (72) Pulse Ox 97 O2 Delivery Room Air Capillary Refill : Height, Weight, BMI Height: 5'7.00" Weight: 135lbs. 0.0oz. 61.425795el; 24.00 BMI Method:Stated General Appearance: no apparent distress, other (Chronically ill. Weak appearing) HEENT: PERRL/EOMI, pharynx normal Neck: full range of motion, supple Cardiovascular: regular rate, rhythm, no murmur Respiratory: lungs clear, normal breath sounds Gastrointestinal: non tender, soft Back: normal inspection, no CVA tenderness, no vertebral tenderness Extremities: pelvis stable, other (Purpling to the lower extremities from mid tibia down with 1-2+ edema. Color consistent with Raynaud's disease and patient states typical) Neurologic/Psychiatric: alert, oriented x 3, other (Weak appearing) Skin: warm/dry, other (Purpling color to hands and feet bilateral) [place] Coma Score Best Eye Response: (4) Open Spontaneously Best Verbal Response: (5) Oriented Best Motor Response: (6) Obeys Commands Progress/Results/Core Measures Results/Orders Lab Results Laboratory Tests Test 04/27/22 09:43 04/27/22 10:42 04/27/22 11:19 Range/Units White Blood Count 19.8 H 4.3-11.0 10^3/uL Red Blood Count 5.21 H 3.80-5.11 10^6/uL Hemoglobin 13.3 11.5-16.0 g/dL Hematocrit 44 35-52 % Mean Corpuscular Volume 84 80-99 fL Mean Corpuscular Hemoglobin 26 25-34 pg Mean Corpuscular Hemoglobin Concent 30 L 32-36 g/dL Red Cell Distribution Width 17.1 H 10.0-14.5 % Platelet Count 248 130-400 10^3/uL Mean Platelet Volume 8.9 L 9.0-12.2 fL Immature Granulocyte % (Auto) 1 % Neutrophils (%) (Auto) 91 H 42-75 % Lymphocytes (%) (Auto) 2 L 12-44 % Monocytes (%) (Auto) 6 0-12 % Eosinophils (%) (Auto) 0 0-10 % Basophils (%) (Auto) 0 0-10 % Neutrophils # (Auto) 18.0 H 1.8-7.8 10^3/uL Lymphocytes # (Auto) 0.3 L 1.0-4.0 10^3/uL Monocytes # (Auto) 1.2 H 0.0-1.0 10^3/uL Eosinophils # (Auto) 0.0 0.0-0.3 10^3/uL Basophils # (Auto) 0.0 0.0-0.1 10^3/uL Immature Granulocyte # (Auto) 0.2 H 0.0-0.1 10^3/uL Neutrophils % (Manual) 93 % Lymphocytes % (Manual) 2 % Monocytes % (Manual) 3 % Eosinophils % (Manual) 0 % Basophils % (Manual) 0 % Band Neutrophils 2 % Anisocytosis SLIGHT Sodium Level 139 135-145 MMOL/L Potassium Level 3.5 L 3.6-5.0 MMOL/L Chloride Level 100 98-107 MMOL/L Carbon Dioxide Level 26 21-32 MMOL/L Anion Gap 13 5-14 MMOL/L Blood Urea Nitrogen 14 7-18 MG/DL Creatinine 0.83 0.60-1.30 MG/DL Estimat Glomerular Filtration Rate 82 BUN/Creatinine Ratio 17 Glucose Level 112 H 70-105 MG/DL Calcium Level 9.7 8.5-10.1 MG/DL Corrected Calcium 9.7 8.5-10.1 MG/DL Magnesium Level 2.1 1.6-2.4 MG/DL Total Bilirubin 0.3 0.1-1.0 MG/DL Aspartate Amino Transf (AST/SGOT) 20 5-34 U/L Alanine Aminotransferase (ALT/SGPT) 17 0-55 U/L Alkaline Phosphatase 127 40-136 U/L C-Reactive Protein High Sensitivity 5.11 H 0.00-0.50 MG/DL Total Protein 7.2 6.4-8.2 GM/DL Albumin 4.0 3.2-4.5 GM/DL Lactic Acid Level 1.59 0.50-2.00 MMOL/L Urine Color YELLOW Urine Clarity CLEAR Urine pH 7.0 5-9 Urine Specific [place] 1.015 L 1.016-1.022 Urine Protein 1+ H NEGATIVE Urine Glucose (UA) NEGATIVE NEGATIVE Urine Ketones NEGATIVE NEGATIVE Urine Nitrite NEGATIVE NEGATIVE Urine Bilirubin NEGATIVE NEGATIVE Urine Urobilinogen 0.2 < = 1.0 MG/DL Urine Leukocyte Esterase NEGATIVE NEGATIVE Urine RBC (Auto) NEGATIVE NEGATIVE Urine RBC NONE /HPF Urine WBC 0-2 /HPF Urine Squamous Epithelial Cells 0-2 /HPF Urine Crystals NONE /LPF Urine Bacteria TRACE /HPF Urine Casts NONE /LPF Urine Mucus NEGATIVE /LPF Urine Culture Indicated NO My Orders Orders - TWYLA COPELAND MD Cbc With Automated Diff (04/27/22 09:47) Comprehensive Metabolic Panel (04/27/22 09:47) Hs C Reactive Protein (04/27/22 09:47) Magnesium (04/27/22 09:47) Ua Culture If Indicated (04/27/22 09:47) Ed Iv/Invasive Line Start (04/27/22 09:47) Ns Iv 500 Ml (Sodium Chloride 0.9%) (04/27/22 10:00) Ct Head Wo (04/27/22 09:47) Manual Differential (04/27/22 09:43) Chest 1 View, Ap/Pa Only (04/27/22 10:05) Morphine Injection (Morphine Injection (04/27/22 10:30) Lactic Acid Analyzer (04/27/22 10:40) Blood Culture (04/27/22 10:40) Code/Resuscitation (04/27/22 11:48) Piperacillin Sodium/Tazobactam (Zosyn Vi (04/27/22 12:00) Vancomycin Injection (Vancomycin Injecti (04/27/22 12:00) Vancomycin Injection (Vancomycin Injecti (04/27/22 13:00) Ed Admission (Communication) (04/27/22 11:48) Medications Given in ED Current Medications Medications Dose Ordered Sig/Marino Route Start Time Stop Time Status Last Admin Dose Admin Morphine Sulfate 5 mg ONCE ONCE IVP 04/27/22 10:30 04/27/22 10:31 DC 04/27/22 10:27 5 MG Sodium Chloride 500 ml @ 0 mls/hr Q0M ONCE IV 04/27/22 10:00 04/27/22 10:01 DC 04/27/22 10:14 1,000 MLS/HR Vital Signs/I&O 04/27/22 09:36 Temp 36.3 Pulse 64 Resp 16 B/P (MAP) 89/64 (72) Pulse Ox 97 O2 Delivery Room Air Progress Progress Note : Progress Note Seen and evaluated. Report from EMS. IV, labs, CT head and UA ordered. Normal saline 1 L bolus with warm fluid. Patient is incontinent of stool and nursing well get her cleaned up. We have utilized warm blankets to assist with Raynaud's symptoms and it seems to be helping. Initial blood pressure 89/62. Fluids should help with this. She denies any significant pain and denies head injury but given her previous history, we will go ahead and get CT of the head. Labs include CBC, CMP, magnesium and CRP. Monitor patient. Differential diagnosis includes intracranial injury, dehydration, electrolyte abnormality, UTI, cancer sequela, chemotherapy sequela. 1020: and daughter have arrived until more of the story. Apparently the got up at 7 AM and patient was sitting in her lift chair where she is usually more comfortable. She was doing okay at that point. At 8 AM he got up and found that she had fallen. Apparently she uses a scooter to get to the bathroom and a walker and then is usually able to take a step into the bathroom. Sometime between yesterday and today, she reported to him that her right leg was not working well. She does have history of cellulitis of the leg and venous insufficiency ulcers that have been treated. and daughter were wondering if maybe she was starting to get infection in the right leg again. I did review history and patient does have lung cancer from previous ER notes. I did discuss this with the and daughter. They are reporting that she had lung cancer that is metastasized to the brain and liver as well as the spinal column. She is due to get a PET scan of the spinal column in a few weeks. She did have diarrhea here today. I have added blood cultures and lactic acid and we will get straight cath UA. Morphine 5 mg IV for pain ordered. Monitor patient. 1044: Chest x-ray film reviewed by me and chest mass seems to be less prominent than on previous on my interpretation. No obvious infiltrate currently. CT head study pending. UA pending. CBC reviewed and shows a markedly elevated white count at 19.8 with hemoglobin of 13.3 and a left shift. Patient is on Decadron which may be adding to the elevation of the white count but may also be related to infection. CMP reviewed and electrolytes are grossly normal with slightly elevated glucose at 112. LFTs are normal. Normal renal function. CRP is elevated at 5.11. Monitor patient. 1059: CT complete but pending read. I have reviewed the films and do not see any intracranial hemorrhage on my interpretation. Pending radiology results. Monitor patient. 1141: I did discuss the case with Dr. Heredia. Given that the patient has elevated CRP and white count and has question of leg wounds and cellulitis in the setting of the person receiving immunotherapy for cancer treatment, patient would benefit from admission with IV antibiotics. All of the findings and concerns were discussed with Dr. Quiñonez and she accepts patient for admission, inpatient status. We will initiate Zosyn and vancomycin. Pain is controlled after morphine given earlier. I did discuss all findings and concerns with patient and family who agree with plan. Patient is full code. Diagnostic Imaging Diagonstic Imaging: Xray Plain Films/CT/US/NM/MRI: chest Comments [facility], [place] NAME: FABIOLA [facility] REC#: [id number] PT STATUS: REG ER : 1965 PHYSICIAN: TWYLA COPELAND MD ADMIT DATE: 04/27/22/ER Draft Date of Exam:04/27/22 CHEST 1 VIEW, AP/PA ONLY INDICATION: weakness. TECHNIQUE: Single view chest 10:27 AM. CORRELATION STUDY: 10/03/2021 FINDINGS: Heart size enlarged. Vasculature within normal limits. Findings compatible with rather sizable esophageal hernia. Lung gaines are relatively clear at followup. IMPRESSION: 1. Cardiac enlargement without failure. 2. No pulmonary infiltrate. 3. Rather sizable esophageal hernia. Dictated on workstation # [id number] Dict: 04/27/22 1028 Trans: 04/27/22 1047 CV [id number] Interpreted by: MONI SHEA DO Electronically signed by: Focused Exam Lactate Level 04/27/22 10:42: Lactic Acid Level 1.59 Lactic Acid Level Laboratory Tests Test 04/27/22 10:42 Lactic Acid Level 1.59 MMOL/L (0.50-2.00) Departure Communication (Admissions) Time/Spoke to Admitting Phy: 11:41 Impression Primary Impression: Cellulitis Qualified Codes: L03.116 - Cellulitis of left lower limb Additional Impression: Lung cancer Qualified Codes: C34.92 - Malignant neoplasm of unspecified part of left bronchus or lung Disposition: ADMITTED INPATIENT Condition: Stable Admissions Decision to Admit Reason: Admit from ER (General) Decision to Admit/Date: Apr 27, 2022 Time/Decision to Admit Time: 11:41 Departure-Patient Inst. Referrals: [facility] [place]) Primary Care Physician EMILE CAMPBELL APRN (Family) Primary Care Physician TWYLA COPELAND MD Apr 27, 2022 09:55
[2022-04-27 10:00] LABS: POTASSIUM 3.5 MMOL/L (3.6-5.0)
[2022-04-27 10:01] LABS: CALCIUM 9.7 MG/DL (8.5-10.1)
[2022-04-27 10:03] LABS: TOTAL PROTEIN 7.2 GM/DL (6.4-8.2)
[2022-04-27 10:04] LABS: BILIRUBIN,TOTAL 0.3 MG/DL (0.1-1.0)
[2022-04-27 10:06] LABS: CREATININE SERUM 0.83 MG/DL (0.60-1.30)
[2022-04-27 10:09] LABS: MAGNESIUM 2.1 MG/DL (1.6-2.4)
[2022-04-27] MEDS: NS IV 1000 ML 1,000 ML IV SCH (10:14)
[2022-04-27] MEDS: NS IV 500 ML 500 ML IV ONE ×2 (10:14→13:31)
[2022-04-27] MEDS ORDERED: morphine INJ 10 MG/ML 1ML (SYR OR VIAL) IVP ONE (10:30)
[2022-04-27 10:37] LABS: ANISOCYTOSIS SLIGHT; BAND NEUTROPHILS 2 %; BASOPHILS % (MANUAL) 0 %; EOSINOPHILS % (MANUAL) 0 %; LYMPHOCYTES % (MANUAL) 2 %; MONOCYTES % (MANUAL) 3 %; NEUTROPHILS % (MANUAL) 93 %
--- NOTE | 2022-04-27 10:48 | Diagnostic Imaging Report ---
INDICATION: weakness. TECHNIQUE: Single view chest 10:27 AM. CORRELATION STUDY: 10/03/2021 FINDINGS: Heart size enlarged. Vasculature within normal limits. Findings compatible with rather sizable esophageal hernia. Lung gaines are relatively clear at followup. IMPRESSION: 1. Cardiac enlargement without failure. 2. No pulmonary infiltrate. 3. Rather sizable esophageal hernia. Dictated by: Dictated on workstation # [id number]
--- NOTE | 2022-04-27 10:57 | Diagnostic Imaging Report ---
EXAMINATION: CT head without contrast. TECHNIQUE: Multiple contiguous axial images were obtained through the brain without the use of intravenous contrast. All CT scans use one or more of the following dose optimizing techniques: automated exposure control, MA and/or KvP adjustment based on patient size and exam type or iterative reconstruction. HISTORY: Head pain after fall. COMPARISON: 10/11/2021 FINDINGS: Surgical changes and encephalomalacia within the left cerebellum. Ventricles and sulcal otherwise unremarkable. Mild hypodensities throughout the supratentorial white matter of both cerebral hemispheres. No acute intracranial hemorrhage or abnormal extra-axial fluid collections are present. Calcification of the intracranial ICAs. No hyperdense vessel. Surgical changes of the posterior left calvarium. The calvarium is otherwise intact. Fluid or mucosal thickening of the paranasal sinuses. The mastoid air cells are clear. The orbits are normal. IMPRESSION: 1. No acute intracranial abnormality. 2. Chronic microangiopathy. Surgical changes of the posterior left calvarium and left cerebellum. Dictated by: Dictated on workstation # [id number]
[2022-04-27 11:25] LABS: BILIRUBIN,URINE NEGATIVE (NEGATIVE); CLARITY,URINE CLEAR; COLOR,URINE YELLOW; GLUCOSE, URINE (UA) NEGATIVE (NEGATIVE); KETONES,URINE NEGATIVE (NEGATIVE); LEUKOCYTE ESTERASE ,URINE NEGATIVE (NEGATIVE); NITRITE,URINE NEGATIVE (NEGATIVE); PROTEIN,URINE 1+ (NEGATIVE)
[2022-04-27 11:33] LABS: BACTERIA,URINE TRACE /HPF; SQUAMOUS EPITHELIAL CELL,UR 0-2 /HPF; WBC,URINE 0-2 /HPF
--- NOTE | 2022-04-27 11:50 | History & Physical-Hospitalist ---
History of Present Illness HPI/Chief Complaint CC: Severe weakness with bilateral cellulitis HPI: This is a 57yoWF who has lung cancer with widespread mets including brain who has a recent history of lower leg wounds managed at [place] for wound care who presented to the ER with complaints of severe generalized weakness and increased redness to her legs. She is currently undergoing chemotherapy/immunotherapy. She continues to smoke. We will initiate broad spectrum antibiotics and provide supportive care. Source: patient, family, old records Exam Limitations: clinical condition Date Seen 04/27/22 Time Seen by a Provider: 12:30 Attending Physician Center/[facility] PCP Admitting Physician: Attending Physician: Referring Physician Date of Admission Home Medications & Allergies Home Medications Reviewed patient Home Medication Reconciliation performed by pharmacy medication reconciliations security systems technician and/or nursing. Patients Allergies have been reviewed. Allergies Allergies Coded Allergies codeine (Unverified Allergy, Intermediate, HIVES AND SWELLING , 03/22/15) Past Aiwzyav-Iiaikx-Psivrg Hx Patient Social History Marrital Status: Employed/Student: unemployed Tobacco Use?: Yes Tobacco type used: Cigarettes Smoking Status: Current Everyday Smoker Use of E-Cig and/or Vaping dev: No Substance use?: No Alcohol Use?: Yes Alcohol type: Beer Alcohol Frequency: Once in a while Pt feels they are or have been: No Immunizations Up To Date First/Initial COVID19 Vaccinat: Not currently vaccinated Date of Pneumonia Vaccine: Oct 24, 2009 Current Status Advance Directives: No Communicates: Verbally Primary Language: Danish Preferred Spoken Language: Danish Sensory deficits: Vision impairment Implanted or Applied Medical D: None Past Medical History High Cholesterol, Hypertension Lung What Type of Treatment Did You: Chemotherapy, Radiation Family Medical History Reviewed Nursing Family Hx No Pertinent Family Hx Review of Systems Constitutional: see HPI, malaise, weakness Skin: see HPI Physical Exam Physical Exam Vital Signs Vital Signs - First Documented 04/27/22 04/27/22 04/27/22 09:36 15:53 16:09 Temp 36.3 Pulse 64 Resp 16 B/P (MAP) 89/64 (72) Pulse Ox 97 O2 Delivery Room Air O2 Flow Rate 0.00 FiO2 21 Capillary Refill : Less Than 3 Seconds Height, Weight, BMI Height: 5'7.00" Weight: 135lbs. 0.0oz. 61.901023wb; 23.00 BMI Method:Stated General Appearance: Chronically ill, Thin Respiratory: Chest Non Tender, No Accessory Muscle Use, No Respiratory Distress, Wheezing Cardiovascular: Regular Rate, Rhythm Neurologic/Psychiatric: Alert, Oriented x3, No Motor/Sensory Deficits, Depressed Affect Results Results/Procedures Labs Laboratory Tests 04/27/22 09:43 04/28/22 05:28 Patient resulted labs reviewed. Assessment/Plan Admission Diagnosis Assessment: Severe weakness Bilateral cellulitis of legs Chronic leg wounds Acute wheezing COPD Smoker Lung cancer with widespread mets undergoing cancer treatment Plan: IV abx Pain control Supportive care Admission Status: Inpatient Order (span 2 midnights) Reason for Inpatient Admission: weakness with bilateral leg cellulitis with current active cancer treatment OLYA GÓMEZ DO Apr 27, 2022 11:49
[2022-04-27] MEDS ORDERED: PIPERACILLIN SODIUM/TAZOBACTAM 4.5 GM in NS (IVPB) 100 ML IV ONE (12:00)
[2022-04-27] MEDS ORDERED: VANCOMYCIN INJECTION 750 MG in NS (IVPB) 100 ML IV ONE (12:00)
[2022-04-27] MEDS ORDERED: NS (IVPB) 100 ML ONE (12:25)
[2022-04-27] MEDS ORDERED: VANCOMYCIN INJECTION 500 MG in NS (IVPB) 100 ML IV ONE (13:00)
[2022-04-27] MEDS ORDERED: MILK OF MAGNESIA 400 MG/5 ML 30 ML UDC PO PRN (13:15)
[2022-04-27] MEDS ORDERED: diphenhydrAMINE 50 MG/ML INJ (BENADRYL) IVP PRN (13:15)
[2022-04-27] MEDS ORDERED: HYDROmorphone 2 MG/ML VIAL (DILAUDID) IV PRN (13:15)
[2022-04-27] MEDS ORDERED: CALCIUM CARBONATE 500 MG (TUMS) TAB.CHEW PO PRN (13:15)
[2022-04-27] MEDS ORDERED: ANTACID SUSP 30 ML UDC (MYLANTA) PO PRN (13:15)
[2022-04-27] MEDS ORDERED: VANCOMYCIN INJECTION 0.1 MG in NS (IVPB) 250 ML IV SCH (13:15)
[2022-04-27] MEDS ORDERED: LACTULOSE SYRUP 10GM/15ML (ENULOSE) 30ML UDC PO PRN (13:15)
[2022-04-27] MEDS ORDERED: ONDANSETRON 4 MG/2 ML (SDV) Z0FRAN IV PRN (13:15)
[2022-04-27] MEDS ORDERED: diphenhydrAMINE 25 MG TAB (BENADRYL) PO PRN (13:15)
[2022-04-27] MEDS ORDERED: ONDANSETRON 4 MG (ZOFRAN) ORAL DISSOLVE TAB PO PRN (13:15)
[2022-04-27] MEDS ORDERED: ALPRAZolam 0.25 MG (XANAX) TAB PO PRN (13:15)
[2022-04-27] MEDS ORDERED: MELATONIN 3 MG TABLET PO PRN (13:15)
[2022-04-27] MEDS ORDERED: BISACODYL 10 MG SUPP (DULCOLAX) PR PRN (13:15)
[2022-04-27] MEDS ORDERED: polyethylene glycoL POWDER 17 GM (MIRALAX) PACK PO PRN (13:15)
[2022-04-27] MEDS ORDERED: BENZONATATE 100 MG (TESSALON) CAPSULE PO PRN (13:15)
[2022-04-27] MEDS ORDERED: ACETAMINOPHEN 325 MG TABLET PO PRN (13:15)
[2022-04-27] MEDS ORDERED: NS IV 1000 ML 1,000 ML IV STA (13:28)
[2022-04-27] MEDS ORDERED: VANCOMYCIN 1250 MG/NS 250 ML IVPB IV NR ×2 (14:00)
[2022-04-27] MEDS: ENOXAPARIN 40 MG/0.4 ML (LOVENOX) SYR SC SCH (14:24)
[2022-04-27] MEDS: RT-ALBUTEROL/IPRATROPIUM 3 ML (DUONEB) VIAL INH SCH ×3 (15:52→21:45)
[2022-04-27] MEDS ORDERED: RT-ALBUTEROL/IPRATROPIUM 3 ML (DUONEB) VIAL INH PRN (16:15)
[2022-04-27] MEDS: methylPREDNISolone 40 MG/ML (Solu-MEDROL) VIAL IV SCH (18:22)
[2022-04-27] MEDS: PIPERACILLIN SODIUM/TAZOBACTAM 4.5 GM in NS (IVPB) 100 ML IV SCH (18:22)
[2022-04-27] MEDS: DOCUSATE SODIUM 100 MG (COLACE) CAP PO SCH (19:49)
[2022-04-27] MEDS: MONTELUKAST 10 MG (SINGULAIR) TAB PO SCH (19:49)
[2022-04-27] MEDS: SENNOSIDES 8.6 MG (SENOKOT) TAB PO SCH (19:49)
[2022-04-27] MEDS: morphine ER 15 MG (MS CONTIN) TAB PO SCH (19:49)
[2022-04-28] VITALS (7 sets, daily range): BP systolic 148–186; BP diastolic 78–92
[2022-04-28] MEDS: methylPREDNISolone 40 MG/ML (Solu-MEDROL) VIAL IV SCH ×4 (00:53→17:46)
[2022-04-28] MEDS: VANCOMYCIN 1 GM/NS 250 ML IVPB IV SCH ×4 (00:56→14:28)
[2022-04-28] MEDS: PIPERACILLIN SODIUM/TAZOBACTAM 4.5 GM in NS (IVPB) 100 ML IV SCH ×3 (02:34→17:47)
[2022-04-28] MEDS: NS IV 1000 ML 1,000 ML IV SCH (05:45)
[2022-04-28 06:21] LABS: BASOPHILS % (AUTO) 0 % (0-10); EOSINOPHILS % (AUTO) 0 % (0-10); HEMATOCRIT 37 % (35-52); HEMOGLOBIN 11.2 g/dL (11.5-16.0); LYMPHOCYTES # (AUTO) 0.2 10^3/uL (1.0-4.0); LYMPHOCYTES % (AUTO) 1 % (12-44); MEAN CORPUSCULAR HEMOGLOBIN 25 pg (25-34); MEAN CORPUSCULAR HGB CONC 30 g/dL (32-36); MEAN CORPUSCULAR VOLUME 84 fL (80-99); MEAN PLATELET VOLUME 9.2 fL (9.0-12.2); MONOCYTES # (AUTO) 0.3 10^3/uL (0.0-1.0); MONOCYTES % (AUTO) 2 % (0-12); NEUTROPHILS # (AUTO) 12.6 10^3/uL (1.8-7.8); NEUTROPHILS % (AUTO) 96 % (42-75); PLATELET COUNT 206 10^3/uL (130-400); WHITE BLOOD COUNT 13.1 10^3/uL (4.3-11.0)
[2022-04-28 06:30] LABS: ALBUMIN 3.1 GM/DL (3.2-4.5)
[2022-04-28 06:31] LABS: CALCIUM 8.7 MG/DL (8.5-10.1)
[2022-04-28 06:33] LABS: TOTAL PROTEIN 5.9 GM/DL (6.4-8.2)
[2022-04-28 06:34] LABS: BILIRUBIN,TOTAL 0.3 MG/DL (0.1-1.0)
[2022-04-28 06:36] LABS: CREATININE SERUM 0.64 MG/DL (0.60-1.30)
--- NOTE | 2022-04-28 07:26 | Progress Note ---
Subjective Date Seen by a Provider: Apr 28, 2022 Time Seen by a Provider: 11:00 Subjective/Events-last exam Improved status Wants to go outside to get some "fresh air" I offered and Nicotine patch but she declines Wants to go home today but the cellulitis is improved and needs 1 more day of abx Has wound care appt tomorrow at 1300 Review of Systems General: Fatigue Focused Exam Lactate Level 04/27/22 10:42: Lactic Acid Level 1.59 Objective Exam Last Set of Vital Signs Vital Signs Date Time Temp Pulse Resp B/P (MAP) Pulse Ox O2 Delivery O2 Flow Rate FiO2 04/28/22 03:35 36.8 83 18 148/78 (101) 95 Room Air 04/27/22 16:09 0.00 04/27/22 15:53 21 Capillary Refill : Less Than 3 Seconds I&O Intake and Output 04/28/22 00:00 Intake Total 900 ml Balance 900 ml Intake Oral 800 ml IV Total 100 ml # Voids 2 # Bowel Movements 2 Daily Weight Change Yes, 2-13 lbs General: Alert, Oriented X3, Cooperative, No Acute Distress Lungs: Clear to Auscultation, Normal Air Movement Heart: Regular Rate, Normal S1, Normal S2, No Murmurs Psych/Mental Status: Mental Status NL, Mood NL Results Lab Laboratory Tests 04/27/22 09:43: White Blood Count 19.8H, Red Blood Count 5.21H, Hemoglobin 13.3, Hematocrit 44, Mean Corpuscular Volume 84, Mean Corpuscular Hemoglobin 26, Mean Corpuscular Hemoglobin Concent 30L, Red Cell Distribution Width 17.1H, Platelet Count 248, Mean Platelet Volume 8.9L, Immature Granulocyte % (Auto) 1, Neutrophils (%) (Auto) 91H, Lymphocytes (%) (Auto) 2L, Monocytes (%) (Auto) 6, Eosinophils (%) (Auto) 0, Basophils (%) (Auto) 0, Neutrophils # (Auto) 18.0H, Lymphocytes # (Auto) 0.3L, Monocytes # (Auto) 1.2H, Eosinophils # (Auto) 0.0, Basophils # (Auto) 0.0, Immature Granulocyte # (Auto) 0.2H, Neutrophils % (Manual) 93, Lymphocytes % (Manual) 2, Monocytes % (Manual) 3, Eosinophils % (Manual) 0, Basophils % (Manual) 0, Band Neutrophils 2, Anisocytosis SLIGHT, Sodium Level 139, Potassium Level 3.5L, Chloride Level 100, Carbon Dioxide Level 26, Anion Gap 13, Blood Urea Nitrogen 14, Creatinine 0.83, Estimat Glomerular Filtration Rate 82, BUN/Creatinine Ratio 17, Glucose Level 112H, Calcium Level 9.7, Corrected Calcium 9.7, Magnesium Level 2.1, Total Bilirubin 0.3, Aspartate Amino Transf (AST/SGOT) 20, Alanine Aminotransferase (ALT/SGPT) 17, Alkaline P hosphatase 127, C-Reactive Protein High Sensitivity 5.11H, Total Protein 7.2, Albumin 4.0 04/27/22 10:42: Lactic Acid Level 1.59 04/27/22 11:19: Urine Color YELLOW, Urine Clarity CLEAR, Urine pH 7.0, Urine Specific [place] 1.015L, Urine Protein 1+H, Urine Glucose (UA) NEGATIVE, Urine Ketones NEGATIVE, Urine Nitrite NEGATIVE, Urine Bilirubin NEGATIVE, Urine Urobilinogen 0.2, Urine Leukocyte Esterase NEGATIVE, Urine RBC (Auto) NEGATIVE, Urine RBC NONE, Urine WBC 0-2, Urine Squamous Epithelial Cells 0-2, Urine Crystals NONE, Urine Ba cteria TRACE, Urine Casts NONE, Urine Mucus NEGATIVE, Urine Culture Indicated NO 04/28/22 05:28: White Blood Count 13.1H, Red Blood Count 4.41, Hemoglobin 11.2L, Hematocrit 37, Mean Corpuscular Volume 84, Mean Corpuscular Hemoglobin 25, Mean Corpuscular Hemoglobin Concent 30L, Red Cell Distribution Width 17.1H, Platelet Count 206, Mean Platelet Volume 9.2, Immature Granulocyte % (Auto) 0, Neutrophils (%) (Auto) 96H, Lymphocytes (%) (Auto) 1L, Monocytes (%) (Auto) 2, Eosinophils (%) (Auto) 0, Basophils (%) (Auto) 0, Neutrophils # (Auto) 12.6H, Lymphocytes # (Auto) 0.2L, Monocytes # (Auto) 0.3, Eosinophils # (Auto) 0.0, Basophils # (Auto) 0.0, Immature Granulocyte # (Auto) 0.0, Sodium Level 140, Potassium Level 4.0, Chloride Level 108H, Carbon Dioxide Level 22, Anion Gap 10, Blood Urea Nitrogen 12, Creatinine 0.64, Estimat Glomerular Filtration Rate 102, BUN/Creatinine Ratio 19, Glucose Level 141H, Calcium Level 8.7, Corrected Gareth cium 9.4, Total Bilirubin 0.3, Aspartate Amino Transf (AST/SGOT) 13, Alanine Aminotransferase (ALT/SGPT) 15, Alkaline Phosphatase 103, Total Protein 5.9L, Albumin 3.1L Assessment/Plan Assessment/Plan Assess & Plan/Chief Complaint Assessment: Severe weakness Bilateral cellulitis of legs Chronic leg wounds Acute wheezing-improved COPD Smoker Lung cancer with widespread mets undergoing cancer treatment Plan: IV abx Pain control Supportive care IV steroids OLYA GÓMEZ DO Apr 28, 2022 07:26
[2022-04-28] MEDS: RT-ALBUTEROL/IPRATROPIUM 3 ML (DUONEB) VIAL INH SCH ×3 (08:01→23:01)
[2022-04-28] MEDS ORDERED: OMEP40CA6 PO (09:12)
[2022-04-28] MEDS ORDERED: MTP25TSR PO (09:12)
[2022-04-28] MEDS ORDERED: HYDR-3820 PO (09:12)
[2022-04-28] MEDS ORDERED: SERT-414 PO (09:12)
[2022-04-28] MEDS ORDERED: DEXA2TAB PO (09:12)
[2022-04-28] MEDS ORDERED: DULO60CA59 PO (09:12)
[2022-04-28] MEDS ORDERED: LISI10TA25 PO (09:12)
[2022-04-28] MEDS ORDERED: PREG200C28 PO (09:12)
[2022-04-28] MEDS: DOCUSATE SODIUM 100 MG (COLACE) CAP PO SCH ×2 (09:16→20:38)
[2022-04-28] MEDS: SENNOSIDES 8.6 MG (SENOKOT) TAB PO SCH ×2 (09:16→20:39)
[2022-04-28] MEDS: LORATADINE (CLARITIN) 10 MG TAB PO SCH (09:18)
[2022-04-28] MEDS: morphine ER 15 MG (MS CONTIN) TAB PO SCH ×2 (09:18→20:37)
[2022-04-28] MEDS ORDERED: amLODIPine 5 MG (NORVASC) TAB PO NR (12:00)
[2022-04-28] MEDS: ENOXAPARIN 40 MG/0.4 ML (LOVENOX) SYR SC SCH (14:28)
[2022-04-28] MEDS: cloNIDine 0.1 MG (CATAPRES) TAB PO PRN (15:45)
[2022-04-28] MEDS: MONTELUKAST 10 MG (SINGULAIR) TAB PO SCH (20:37)
[2022-04-28] MEDS: PREGABALIN 100 MG (LYRICA) CAPSULE PO SCH (20:37)
[2022-04-28] MEDS ORDERED: ASPIRIN 81 MG CHEW (CHILDREN'S ASA) PO SCH (21:00)
[2022-04-28] MEDS ORDERED: AtorvaSTATin TABLET 10 MG TABLET PO SCH (21:00)
[2022-04-28] MEDS ORDERED: lisINopril 10 MG (PRINIVIL) TABLET PO SCH (21:00)
[2022-04-29] MEDS: methylPREDNISolone 40 MG/ML (Solu-MEDROL) VIAL IV SCH ×2 (00:26→05:03)
[2022-04-29 00:27] VITALS: BP 174/90
[2022-04-29] MEDS ORDERED: TROUGH ORDER-PHARMACY XX NR (01:00)
[2022-04-29] MEDS: VANCOMYCIN 1 GM/NS 250 ML IVPB IV SCH ×2 (02:12)
[2022-04-29] MEDS: PIPERACILLIN SODIUM/TAZOBACTAM 4.5 GM in NS (IVPB) 100 ML IV SCH ×2 (02:13→10:47)
[2022-04-29 04:59] VITALS: BP_SYST 174; BP_SYST 183; BP_DIAS 83; BP_DIAS 90
[2022-04-29] MEDS: cloNIDine 0.1 MG (CATAPRES) TAB PO PRN (05:03)
[2022-04-29 05:34] LABS: BASOPHILS % (AUTO) 0 % (0-10); EOSINOPHILS % (AUTO) 0 % (0-10); HEMATOCRIT 34 % (35-52); HEMOGLOBIN 10.5 g/dL (11.5-16.0); LYMPHOCYTES # (AUTO) 0.2 10^3/uL (1.0-4.0); LYMPHOCYTES % (AUTO) 2 % (12-44); MEAN CORPUSCULAR HEMOGLOBIN 26 pg (25-34); MEAN CORPUSCULAR HGB CONC 31 g/dL (32-36); MEAN CORPUSCULAR VOLUME 84 fL (80-99); MEAN PLATELET VOLUME 9.5 fL (9.0-12.2); MONOCYTES # (AUTO) 0.4 10^3/uL (0.0-1.0); MONOCYTES % (AUTO) 4 % (0-12); NEUTROPHILS # (AUTO) 9.8 10^3/uL (1.8-7.8); NEUTROPHILS % (AUTO) 95 % (42-75); PLATELET COUNT 203 10^3/uL (130-400); WHITE BLOOD COUNT 10.4 10^3/uL (4.3-11.0)
[2022-04-29 05:49] LABS: POTASSIUM 3.9 MMOL/L (3.6-5.0)
[2022-04-29 05:50] LABS: CALCIUM 8.8 MG/DL (8.5-10.1)
[2022-04-29 05:51] LABS: TOTAL PROTEIN 5.8 GM/DL (6.4-8.2)
[2022-04-29 05:53] LABS: BILIRUBIN,TOTAL 0.2 MG/DL (0.1-1.0)
[2022-04-29 05:55] LABS: CREATININE SERUM 0.67 MG/DL (0.60-1.30)
[2022-04-29] MEDS: RT-ALBUTEROL/IPRATROPIUM 3 ML (DUONEB) VIAL INH SCH (06:32)
[2022-04-29 07:48] VITALS: BP 123/73
[2022-04-29] MEDS: PREGABALIN 100 MG (LYRICA) CAPSULE PO SCH (08:55)
[2022-04-29] MEDS: SENNOSIDES 8.6 MG (SENOKOT) TAB PO SCH ×2 (08:55→09:05)
[2022-04-29] MEDS: DOCUSATE SODIUM 100 MG (COLACE) CAP PO SCH ×2 (08:55→09:05)
[2022-04-29] MEDS: LORATADINE (CLARITIN) 10 MG TAB PO SCH (08:56)
[2022-04-29] MEDS: morphine ER 15 MG (MS CONTIN) TAB PO SCH (08:56)
[2022-04-29] MEDS ORDERED: SERTRALINE 100 MG (ZOLOFT) TAB PO SCH (09:00)
[2022-04-29] MEDS ORDERED: PANTOPRAZOLE 40 MG (PROTONIX) TAB PO SCH (09:00)
[2022-04-29] MEDS ORDERED: DULoxetine 30 MG (CYMBALTA) CAP PO SCH (09:00)
[2022-04-29] MEDS ORDERED: amLODIPine 5 MG (NORVASC) TAB PO SCH (09:00)
--- NOTE | 2022-04-29 11:15 | Physical Therapy Progress Note ---
Therapy Progress Note Patient declined PT evaluation due to up independently in room and showered independently. Patient did request HEP. PT issued, educated and demonstrated written HEP (refer to chart). Patient performed and demonstrated good understanding of HEP. No skilled PT indicated. 1 EDUC [phone] EDWARD DODGE PT Apr 29, 2022 11:14
[2022-04-29] MEDS ORDERED: MORP-68 PO (11:23)
[2022-04-29] MEDS ORDERED: METO50TA7 PO (11:24)
[2022-04-29] MEDS ORDERED: [UNRECOGNIZED DRUG - CODE] IV (11:30)
--- NOTE | 2022-04-29 11:37 | Discharge Summary ---
Discharge Summary Instructions for Patient Assessment/Instructions Bilateral LE Cellulitis Chronic leg wounds COPD Smoker Lung Cancer PVD Physician to follow Patient: SANTANASEJn Discharge Diet for Home: No Restrictions Hospital Course Date of Admission: Apr 27, 2022 at 12:00 Admission Diagnosis : Family Physician/Provider: Evelyn Rosenbaum Aprn Date of Discharge: 04/29/22 Discharge Diagnosis: Bilateral LE cellulitis Chronic leg wounds COPD PVD Smoker Lung Cancer Labs and Pending Lab Test: Laboratory Tests 04/29/22 00:50: Vancomycin Level Trough 12.8 04/29/22 05:10: White Blood Count 10.4, Red Blood Count 4.08, Hemoglobin 10.5L, Hematocrit 34L, Mean Corpuscular Volume 84, Mean Corpuscular Hemoglobin 26, Mean Corpuscular Hemoglobin Concent 31L, Red Cell Distribution Width 17.1H, Platelet Count 203, Mean Platelet Volume 9.5, Immature Granulocyte % (Auto) 0, Neutrophils (%) (Auto) 95H, Lymphocytes (%) (Auto) 2L, Monocytes (%) (Auto) 4, Eosinophils (%) (Auto) 0, Basophils (%) (Auto) 0, Neutrophils # (Auto) 9.8H, Lymphocytes # (Auto) 0.2L, Monocytes # (Auto) 0.4, Eosinophils # (Auto) 0.0, Basophils # (Auto) 0.0, Immature Granulocyte # (Auto) 0.0, Sodium Level 139, Potassium Level 3.9, Chloride Level 106, Carbon Dioxide Level 21, Anion Gap 12, Blood Urea Nitrogen 14, Creatinine 0.67, Estimat Glomerular Filtration Rate 101, BUN/Creatinine Ratio 21, Glucose Level 129H, Calcium Level 8.8, Corrected Calcium 9.6, Total Bilirubin 0.2, Aspartate Amino Transf (AST/SGOT) 10, Alanine Aminotransferase (ALT/SGPT) 13, Alkaline Phosphatase 86, Total Protein 5.8L, Albumin 3.0L Microbiology 04/27/22 Blood Culture - Preliminary, Resulted No growth Home Meds Active Reported Libtayo (Cemiplimab-Rwlc) 350 Mg/7 Ml (50 Mg/Ml) Vial 350 Mg IV [id number] Metoprolol Succinate 50 Mg Tab.er.24h 25 Mg PO DAILY TAKES 1/2 OF (50MG) TAB Morphine Sulfate ER (Morphine Sulfate) 15 Mg Tablet.er 15 Mg PO BID Lisinopril 10 Mg Tablet 1 Ea PO HS Pregabalin 200 Mg Capsule 1 Ea PO BID Hydrocodone-Acetamin 10-325 mg (Hydrocodone/Acetaminophen) 10 Mg-325 Mg Tablet 1 Ea PO Q6H PRN Dexamethasone 2 Mg Tablet 1 Ea PO QD,1200 Omeprazole 40 Mg Capsule.dr Anival Caldwell PO DAILY Duloxetine HCl 60 Mg Capsule.dr Anival Caldwell PO DAILY Sertraline HCl 100 Mg Tablet 1 Each PO DAILY Aspirin 81 Mg Tab.chew 81 Mg PO HS Simvastatin 20 Mg Tablet 20 Mg PO HS Patient Allergies: Coded Allergies: codeine (Unverified Allergy, Intermediate, HIVES AND SWELLING , 03/22/15) Height (Feet): 5 Height (Inches): 7.00 Weight (Pounds): 135 Weight (Ounces): 0.0 New Medications: Cephalexin (Cephalexin) 500 Mg Tablet 500 MG PO BID for 7 Days, #14 TAB Amlodipine Besylate (Amlodipine Besylate) 5 Mg Tablet 5 MG PO DAILY, #30 TAB Loratadine (Loratadine) 10 Mg Tablet 10 MG PO DAILY, #30 TAB Montelukast Sodium (Montelukast Sodium) 10 Mg Tablet 10 MG PO HS, #30 TAB Continued Medications: Aspirin (Aspirin) 81 Mg Tab.chew 81 MG PO HS, TAB.CHEW Cemiplimab-Rwlc (Libtayo) 350 Mg/7 Ml (50 Mg/Ml) Vial 350 MG IV [id number], EA Dexamethasone (Dexamethasone) 2 Mg Tablet 1 EA PO QD,1200 Duloxetine HCl (Duloxetine HCl) 60 Mg Capsule.dr Anival CALDWELL PO DAILY Hydrocodone/Acetaminophen (Hydrocodone-Acetamin 10-325 mg) 10 Mg-325 Mg Tablet 1 EA PO Q6H PRN for PAIN-MODERATE TO SEVERE Lisinopril (Lisinopril) 10 Mg Tablet 1 EA PO HS Metoprolol Succinate (Metoprolol Succinate) 50 Mg Tab.er.24h 25 MG PO DAILY, TAB TAKES 1/2 OF (50MG) TAB Morphine Sulfate (Morphine Sulfate ER) 15 Mg Tablet.er 15 MG PO BID Omeprazole (Omeprazole) 40 Mg Capsule.dr Anival CALDWELL PO DAILY Pregabalin (Pregabalin) 200 Mg Capsule 1 EA PO BID Sertraline HCl (Sertraline HCl) 100 Mg Tablet 1 EACH PO DAILY Simvastatin (Simvastatin) 20 Mg Tablet 20 MG PO HS, TAB Home Health Need/Face to Face Date of Face to Face: Apr 29, 2022 Clinical Findings: Generalized weakness and fatigue, Instability, Unsteady gait, Non-healing wound I have seen Pt [id number]: Yes Discharged To: Home Diagnosis/Conditions: See Above Patient is Homebound due to: Edis fall risk due to instabilty Homebound Status Due to the above stated illness, injury or surgical procedure (medical condition or diagnosis) and associated clinical findings, the patient is homebound because of his/her inability to leave home except with aid of a supportive device and/or person AND leaving the home requires a considerable and taxing effort or is medically contraindicated. Pt req the following assistanc: [facility] Nursing Orders Home Health Services Order: Nursing Services, Physical Therapy-Evaluate & Treat, Wound Care-Eval/Treat Home Health Infusion Therapy Line Start Date: Apr 27, 2022 Therapy Orders Therapy Orders: OT (must have SN or PT order), PT to assess for OT Therapy Specific Orders: Gait training, Increase strength/endurance Certify Stmt I certify that this patient is under my care and that I, a nurse practitioner or a physician; a behavioral modification assistant working with me, had a face to face encounter that - meets the physician face to face encounter requirements with this patient as dated. Discharge Physical Exam General: Alert, Oriented X3, Cooperative, No Acute Distress Lungs: Other (Basilar wheezing, normal work of breathing at rest) Heart: Regular Rate, No Murmurs Abdomen: Soft, No Tenderness, No Masses Extremities: Other (2+ pitting edema bilaterally, medial open wound on LLE) Neuro: Normal Speech VALENTINO THOMAS MD Apr 29, 2022 11:32
[2022-04-29] MEDS ORDERED: MONT-40 PO (11:45)
[2022-04-29] MEDS ORDERED: LORA10TA7 PO (11:45)
[2022-04-29] MEDS ORDERED: AMLO-250 PO (11:45)
[2022-04-29] MEDS ORDERED: CEPH500T PO (11:45)
[2022-04-29 11:46] VITALS: BP 143/81
[2022-04-29 11:50] VITALS: BP 143/81
== END 2022-04-29 11:50 | disposition home health service (06) | DRG 603 ==
LOC: EDUNIT# 09:34 → ER 09:34 → 4TH 12:00
PROVIDERS: ADMIT Internal Medicine; ATTEND Family Medicine
DX: L03.116 Cellulitis of left lower limb (principal); C34.92 Malignant neoplasm of unspecified part of left bronchus or lung; C78.7 Secondary malignant neoplasm of liver and intrahepatic bile duct; C79.31 Secondary malignant neoplasm of brain; C79.51 Secondary malignant neoplasm of bone; L03.115 Cellulitis of right lower limb; I87.2 Venous insufficiency (chronic) (peripheral); I73.9 Peripheral vascular disease, unspecified; R15.9 Full incontinence of feces; J44.9 Chronic obstructive pulmonary disease, unspecified; F17.210 Nicotine dependence, cigarettes, uncomplicated; I10 Essential (primary) hypertension; E78.00 Pure hypercholesterolemia, unspecified; H54.7 Unspecified visual loss; Z91.81 History of falling; Z79.82 Long term (current) use of aspirin; Z79.02 Long term (current) use of antithrombotics/antiplatelets; Z88.5 Allergy status to narcotic agent
CPT/HCPCS: 36415; 70450; 71045; 80053; 80202; 81000; 83605; 83735; 85007; 85025; 85027; 86141; 87040; 94640; 94760